=== PATIENT | female | born 1955 | race Hispanic/Latino ===

== ENCOUNTER 2019-02-02 14:33 | Outpatient (CLI) | payer OTHER ==
--- NOTE | 2019-02-02 15:59 | RAD ---
EXAM: RIGHT KNEE THREE VIEWS: History: Right knee pain. FINDINGS: Very markedly severe tricompartment arthrosis changes are noted with marked sclerosis and eburnation particularly involving the medial compartment with very extensive hypertrophic osteophytosis as well as probable multiple synovial osteochondromas and/or loose bodies. Suprapatellar joint effusion. No f racture or dislocation. IMPRESSION: Severe arthrosis and degenerative changes. Probable multiple synovial osteochondromas/intraarticular bodies. Suprapatellar joint effusion. No fracture or dislocation. POS: OFF
== END 2019-02-02 14:34 | disposition home or self-care (01) ==
LOC: BICRAD 14:33
PROVIDERS: ATTEND Family Medicine
DX: M25.561 Pain in right knee (principal); M17.11 Unilateral primary osteoarthritis, right knee; M25.461 Effusion, right knee

== ENCOUNTER 2019-02-21 02:29 | Inpatient (IN) | payer OTHER ==
[2019-02-21] MEDS ORDERED: Albuterol Sulfate 2.5 mg/3 ml Neb ONE (02:49)
[2019-02-21 02:58] LABS: #Eosinphils 0.1 thou/uL (0.0-0.7); #Lymphocytes 1.3 thou/uL (1.20-3.40); #Neutrophils 8.8 thou/uL (1.40-6.50); %Basophils 0.1 % (0.0-1.0); %Eosinophils 0.9 % (0.0-10.0); %Lymphocytes 11.7 % (21.0-51.0); %Monocytes 9.1 % (0.0-10.0); %Neutrophils 78.2 % (42.0-75.0); Hemoglobin 15.1 g/dL (12.0-16.0); Mean Corpuscular HGB CONC 34.2 g/dL (32.0-36.0); Mean Corpuscular Hemoglobin 30.7 pg (27.0-31.0); Mean Corpuscular Volume 89.6 fL (78.0-98.0); Mean Platelet Volume 6.5 fL (7.4-10.4); Platelet Count 324 thou/uL (130-400); Red Blood Cell (RBC) Count 4.91 mill/uL (4.20-5.40); White Blood Cell (WBC) Count 11.2 thou/uL (4.8-10.8)
[2019-02-21] MEDS ORDERED: Dexamethasone 10 MG/ML VIAL ONE (03:09)
[2019-02-21] MEDS ORDERED: Magnesium 2 GM/50 ML BAG (IN WATER) ONE (03:09)
[2019-02-21 03:20] LABS: ALT (SGPT) 20 U/L (8-55); AST (SGOT) 22 U/L (5-34); Alkaline Phosphatase 103 U/L (40-150); Anion Gap 13 mmol/L (10-20); BUN (Urea Nitrogen) 6 mg/dL (9.8-20.1); Bilirubin, Total 0.8 mg/dL (0.2-1.2); CK (CPK) 65 U/L (29-168); Calc. Creatinine Clearance 0 mL/min (70-130); Calcium 9.3 mg/dL (7.8-10.44); Carbon Dioxide 23 mmol/L (23-31); Chloride 93 mmol/L (98-107); Estimated GFR-MDRD 80; Globulin 3.6 g/dL (2.4-3.5); Glucose 236 mg/dL (80-115); Lipase 9 U/L (8-78); Potassium 3.7 mmol/L (3.5-5.1); Protein, Total 7.6 g/dL (6.0-8.3); Sodium 125 mmol/L (136-145)
[2019-02-21] MEDS ORDERED: Nitroglycerin 2% Ointment 1 INCH/1 GM Packet ONE ×2 (04:12→11:57)
[2019-02-21] MEDS ORDERED: Furosemide 20 MG/2 ML VIAL ONE (04:12)
[2019-02-21] MEDS ORDERED: Aspirin Chewable 81 MG TAB ONE (04:12)
[2019-02-21 04:31] LABS: Actual Bicarbonate (HCO3a) 23.8 mEq/L (22-28); Analyzer IN Cardio ER; Base Excess (BEa) -0.7 mEq/L (-2.0 to +3.0); CO2 Tension 38.9 mmHg (35.0-45.0); Calcium, Ionized 1.15 mmol/L (1.12-1.30); Carboxyhemoglobin (COHb) 7.1 gm% (0.0-3.0); Hemoglobin (Hb) 15.1 g/dL (12.0-16.0); Potassium - ABG Lab 3.23 mmol/L (3.70-5.30); pH, Arterial 7.41 (7.35-7.45)
[2019-02-21 04:50] LABS: ALV-art Gradient 93.615 (0-20); O2 Tension (PaO2) 57.4 mmHg (> 80.0); Puncture Site RRA
[2019-02-21 06:30] LABS: Troponin I Less than 0.010 ng/mL (< 0.028)
[2019-02-21] MEDS ORDERED: Ondansetron PF 4 MG/2 ML Vial IVP PRN (06:37)
[2019-02-21] MEDS ORDERED: Ondansetron ODT 4 MG TAB SL PRN (06:37)
--- NOTE | 2019-02-21 07:44 | CT ---
CTA THORAX UTILIZING IV CONTRAST WITH PE PROTOCOL AND 3D REFORMATTED IMAGING: Date: 02/21/19 INDICATION: Dyspnea, hypoxia. COMPARISON: None. FINDINGS: Respiratory motion artifact limits image detail of the exam. There are patchy areas of subsegmental v olume loss involving both lungs. No definite central or segmental pulmonary embolus is evident. No en larged lymphadenopathy is noted. No pleural effusion or pneumothorax is demonstrated. There are numer ous layered gallstones within the gallbladder. There is scattered degenerative change. IMPRESSION: 1. No central or segmental pulmonary embolus. 2. Nonspecific areas of subsegmental volume loss seen peripherally throughout both lungs can be rela sara to distal airway disease such as bronchiolitis. This can be infectious or inflammatory in etiolog y. 3. Cholelithiasis. POS: BH
[2019-02-21] MEDS ORDERED: Acetaminophen 325 MG TAB PO PRN (08:22)
[2019-02-21] MEDS ORDERED: Dextrose 5% in Water 1,000 ML IV PRN (08:24)
[2019-02-21] MEDS ORDERED: Dextrose 50% Abboject 50 ML SYRINGE SLOW IVP PRN (08:24)
[2019-02-21] MEDS ORDERED: Metoprolol Tartrate 50 MG TAB ONE (09:15)
[2019-02-21] MEDS ORDERED: Furosemide 40 MG/4 ML VIAL ONE ×2 (09:15→14:47)
[2019-02-21] MEDS ORDERED: Enoxaparin Sodium 40 MG/0.4 ML SYRINGE ONE (09:15)
[2019-02-21 09:22] LABS: Troponin I Less than 0.010 ng/mL (< 0.028)
[2019-02-21] MEDS: Enoxaparin Sodium 40 MG/0.4 ML SYRINGE SC SCH (09:25)
[2019-02-21] MEDS: Furosemide 40 MG/4 ML VIAL SLOW IVP SCH ×2 (09:28→15:00)
[2019-02-21] MEDS: Metoprolol Tartrate 50 MG TAB PO SCH ×2 (09:29→20:55)
[2019-02-21] MEDS: Lisinopril 20 MG TAB PO SCH (09:29)
--- NOTE | 2019-02-21 09:29 | RAD ---
PORTABLE CHEST: Date: 02/21/19 HISTORY: Dyspnea. COMPARISON: None. FINDINGS: Heart size is borderline to slightly enlarged considering portable technique. There are chronic-appea ring lung changes present. No confluent infiltrative process. Changes do not have the typical appeara nce of edema. IMPRESSION: Borderline heart size with increased interstitial lung markings. I would favor that these are probabl y chronic in nature, but could indicate some acute element. A follow-up chest film would be suggested to exclude edema or an atypical infectious process. POS: C
[2019-02-21] MEDS: Nicotine 14 MG PATCH TD SCH (09:33)
--- NOTE | 2019-02-21 09:57 | HP ---
CHIEF COMPLAINT: Shortness of breath. HISTORY OF PRESENT ILLNESS: This patient is a 64-year-old female with a history of significant mental health disease, last admitted here in 2013 with hypertensive urgency and significant mental health issues, at which time, it appear she was discharged to a mental health facility. The patient presented today via EMS with a complaint of 2 days of shortness of breath. The patient is Mauritian-speaking only. They were not able to get significant more information. At that time, apparently, they put her on 2 L nasal cannula, which did help her breathing. The patient now tells me through the interpreter and translator that she has actually been short of breath for 2 weeks. She has had a minimal associated cough and no significant sputum production. She denies any chest pains or fevers or chills. REVIEW OF SYSTEMS: All other systems were reviewed. All pertinent positives and negatives noted in the history of present illness with the exception of complaining of right knee pain, which has apparently been chronic. PAST MEDICAL HISTORY: Notable for hypertension, diabetes, hyperlipidemia, and the mental health issues above believed to be likely schizophrenia. She also apparently has hypothyroidism based on her medications. FAMILY HISTORY: The patient simply reports that both of her parents are . She is not able to give more history than that. PAST SURGICAL HISTORY: None. SOCIAL HISTORY: The patient smokes a pack of cigarettes per day. She denies alcohol or drugs. She lives in a little house by herself. She states that she does have some family around. She is full code and her surrogate decision maker would be her son, Amy. ALLERGIES: NONE. CURRENT MEDICATIONS: 1. Lisinopril 20 mg daily. 2. Metoprolol 50 mg p.o. b.i.d. 3. Pravastatin 20 mg daily. 4. Divalproex ER 500 mg b.i.d. 5. Levothyroxine 25 mcg daily. 6. Metformin ER 500 mg daily. 7. ProAir HFA 2 puffs q.6 hours p.r.n. 8. Fluphenazine depot injection. Of note, this medication list was obtained from the interface with the pharmacy and represent medications that have been filled in the past 60 days. PHYSICAL EXAMINATION: VITAL SIGNS: Initial vital signs; blood pressure 184/101, pulse 72, respirations 20, temperature is 99.1, O2 saturation was 94% on 2 L nasal cannula. Most recent vitals; blood pressure 150/80, pulse 69, respirations 19, and O2 saturations 99% on room air. GENERAL APPEARANCE: Age-appropriate female. She is awake and alert, cooperative and pleasant. She is Mauritian-speaking only and tends to be difficult to understand even for the pedigree researcher. She has a general odor about her. HEENT: PERRL. She has a couple of teeth, which are carious and black. NECK: Supple and symmetric. HEART: Regular rate and rhythm without murmurs, gallops, or rubs. LUNGS: Diminished. There are no significant wheezes or rales. ABDOMEN: Soft, nontender, and nondistended. Positive bowel sounds. No masses. No organomegaly. EXTREMITIES: No cyanosis, clubbing, or edema. She does have severe osteoarthropathy of the right knee. She has palpable peripheral pulses. No edema. PSYCH: The patient appears to be appropriate with her affect and behavior at the moment. LABORATORY DATA: White count 11.2, hemoglobin 15.1, and platelets 324. ABG; pH of 7.41, pCO2 is 38.9, pO2 was 57.4. Sodium is 125, potassium 3.7, chloride 93, CO2 is 23, BUN 6, creatinine 0.74, and glucose 263. AST is 22, ALT is 20, and alkaline phosphatase 103. BNP 1298. IMAGING DATA: CT of the chest reveals no central or segmental pulmonary embolus. There are nonspecific areas of subsegmental volume loss seen peripherally throughout the lungs, which could presumably be related to distal airway disease such as bronchiolitis, infectious or inflammatory etiologies. She also has cholelithiasis. EKGs, normal sinus rhythm at 82 beats per minute. IMPRESSION AND PLAN: 1. Acute hypoxic respiratory failure based on hypoxia on the ABG and the patient has complaints of dyspnea, etiology is likely due to chronic lung disease as seen on the CT scan. Chest x-ray has not been read but appears to show chronic changes as well without specific infiltrate. 2. Chronic obstructive pulmonary disease. The patient is a pack-a-day smoker for a number of years. Her symptoms are consistent with chronic obstructive pulmonary disease exacerbation and potentially some heart failure. We will keep her on supplemental oxygen, give nebulizer treatments and steroids. She does not respond quickly, may need to consider consultation with Pulmonology. Otherwise, it can be accomplished as an outpatient. 3. Congestive heart failure based on elevated BNP and this is higher than the patient's previous levels back in 2014, which were high of 331. The patient does not appear to have had a workup for congestive heart failure. We will obtain an echocardiogram. The patient did receive nitroglycerin topical and Lasix 40 mg in the emergency department as well as aspirin. 4. Hypertension. The patient's blood pressure was significantly elevated on presentation. She received some IV hydralazine and the nitro topical and her blood pressure is better now. We will resume her usual home medications and continue to monitor. 5. Hyponatremia. This is new for the patient as well. She has received diuresis because of the evidence of congestive heart failure. We will not hydrate. We will continue to monitor after workup for the heart failure in the diuresis. 6. Diabetes mellitus. We will continue the metformin and check A1c in the morning. Accu-Cheks, sliding scale, and diabetic diet. 7. Mild leukocytosis. The patient received a dose of antibiotics in the emergency department with Levaquin. There is otherwise not a specific evidence for infection at the moment. We will not continue with the antibiotics. 8. We will continue with telemetry and serial troponins in light of the heart failure decompensation, although the patient has not had specific chest pain or shortness of breath could be an anginal equivalent. 9. Hypothyroidism. Continue with her usual home medications. 10. Schizophrenia versus bipolar disorder. It is unclear exactly what the patient's psychiatric history is. She says she is "crazy." We will continue with the divalproex, presumably she is going to need the fluphenazine while she is here as it is the depot injection. Job ID: [id number]
[2019-02-21] MEDS ORDERED: ISOVUE-370 76%-LOCM 1 ML ONE (11:29)
[2019-02-21] MEDS ORDERED: methylPREDNISolone Sod Succ 40 MG VIAL ONE ×2 (11:57→12:11)
[2019-02-21] MEDS ORDERED: Nitroglycerin 2% Ointment 1 INCH/1 GM Packet TOP SCH (12:00)
[2019-02-21] MEDS: methylPREDNISolone Sod Succ 40 MG VIAL IVP SCH ×3 (12:50→23:48)
[2019-02-21] MEDS: Pravastatin Sodium 20 MG TAB PO SCH (20:55)
[2019-02-22 05:17] LABS: #Basophils 0.1 thou/uL (0.0-0.2); #Lymphocytes 0.6 thou/uL (1.20-3.40); #Monocytes 0.3 thou/uL (0.11-0.59); #Neutrophils 7.9 thou/uL (1.40-6.50); %Basophils 0.9 % (0.0-1.0); %Eosinophils 0.1 % (0.0-10.0); %Lymphocytes 6.6 % (21.0-51.0); %Monocytes 2.8 % (0.0-10.0); %Neutrophils 89.5 % (42.0-75.0); Hemoglobin 13.4 g/dL (12.0-16.0); Mean Corpuscular HGB CONC 32.8 g/dL (32.0-36.0); Mean Corpuscular Hemoglobin 29.6 pg (27.0-31.0); Mean Corpuscular Volume 90.4 fL (78.0-98.0); Mean Platelet Volume 6.7 fL (7.4-10.4); Platelet Count 312 thou/uL (130-400); RBC Distribution Width 13.1 % (11.5-14.5); Red Blood Cell (RBC) Count 4.51 mill/uL (4.20-5.40); White Blood Cell (WBC) Count 8.9 thou/uL (4.8-10.8)
[2019-02-22 05:48] LABS: Anion Gap 13 mmol/L (10-20); BUN (Urea Nitrogen) 19 mg/dL (9.8-20.1); Calc. Creatinine Clearance 83 mL/min (70-130); Calcium 9.4 mg/dL (7.8-10.44); Carbon Dioxide 26 mmol/L (23-31); Chloride 96 mmol/L (98-107); Estimated GFR-MDRD 78; Glucose 227 mg/dL (80-115); Potassium 3.4 mmol/L (3.5-5.1); Sodium 132 mmol/L (136-145)
[2019-02-22] MEDS: Levothyroxine Sodium 25 MCG TAB PO SCH (06:16)
[2019-02-22] MEDS: methylPREDNISolone Sod Succ 40 MG VIAL IVP SCH ×4 (06:19→23:59)
[2019-02-22] MEDS ORDERED: metFORMIN XR 500 MG TAB PO SCH (08:00)
[2019-02-22] MEDS ORDERED: Furosemide 40 MG/4 ML VIAL SLOW IVP SCH (09:15)
--- NOTE | 2019-02-22 10:40 | PDOC.PN ---
- Subjective Encounter Start Date: 02/22/19 Encounter Start Time: 10:38 Subjective: feels better now. irish interpretation used -: breathing better. no CP - Objective Resuscitation Status - Order Detail: 02/21/19 08:22 Resuscitation Status Routine Resuscitation Status: FULL: Full Resuscitation MAR Reviewed: Yes Vital Signs & Weight: Vital Signs (12 hours) Temp Pulse Resp BP Pulse Ox 02/22/19 08:12 95 02/22/19 08:10 98.1 F 76 16 155/72 H 89 L 02/22/19 06:16 74 18 96 02/22/19 03:35 98.1 F 69 17 157/72 H 97 02/21/19 23:07 63 18 Weight Weight 148 lb 11.52 oz Result Diagrams: 02/22/19 04:58 02/22/19 04:58 Additional Labs: Accuchecks 02/22/19 02/21/19 05:32 22:19 POC Glucose 236 H 283 H Laboratory Tests 02/24/14 02/21/19 06:56 02:45 B-Natriuretic Peptide 330.7 H 1298.3 H Phys Exam - Physical Examination Constitutional: NAD HEENT: PERRLA, moist MMs, sclera anicteric, oral pharynx no lesions Neck: no nodes, no JVD, supple, full ROM Respiratory: no wheezing, no rales, no rhonchi, clear to auscultation bilateral Cardiovascular: RRR, no significant murmur, no rub Gastrointestinal: soft, non-tender, no distention, positive bowel sounds Musculoskeletal: no edema, pulses present Neurological: non-focal, normal sensation, moves all 4 limbs Psychiatric: normal affect, A&O x 3 Skin: no rash Dx/Plan (1) Dyspnea Code(s): R06.00 - DYSPNEA, UNSPECIFIED Status: Acute Comment: Likely due to Acute COPD. cont nebs, steroids,O2 prn.cardiac workup underway (2) COPD exacerbation Code(s): J44.1 - CHRONIC OBSTRUCTIVE PULMONARY DISEASE W (ACUTE) EXACERBATION Status: Acute Comment: improving. cont nebs, steroids, O2 prn.IS (3) Elevated brain natriuretic peptide (BNP) level Code(s): R79.89 - OTHER SPECIFIED ABNORMAL FINDINGS OF BLOOD CHEMISTRY Status : Acute Comment: ECHO pending. cont lasix (4) Hypokalemia Code(s): E87.6 - HYPOKALEMIA Status: Acute Comment: replace and recheck (5) DM2 (diabetes mellitus, type 2) Status: Chronic Qualifiers: Diabetes mellitus correction insulin use: without correction use Comment: on ISS w Accuchecks achs (6) HTN (hypertension) Code(s): I10 - ESSENTIAL (PRIMARY) HYPERTENSION Status: Chronic Comment: on Lopressor and lisinopril.monnitor.add prn meds (7) HLD (hyperlipidemia) Code(s): E78.5 - HYPERLIPIDEMIA, UNSPECIFIED Status: Chronic - Plan respiratory therapy, incentive spirometry, DVT proph w/SCDs Clinically better.cont nebs,IV steroids -: cont to diurese and check ECHO results. -: HD stable -: ISS. reconcile home meds.cont prn antihypertensives * . Review of Systems - Review of Systems Constitutional: negative: fever, chills, sweats, weakness, malaise, other Respiratory: SOB with Excertion. negative: Cough, Dry, Shortness of Breath, Hemoptysis, Pleuritic Pain, Sputum, Wheezing Cardiovascular: negative: chest pain, palpitations, orthopnea, paroxysmal nocturnal dyspnea, edema, light headedness, other Gastrointestinal: negative: Nausea, Vomiting, Abdominal Pain, Diarrhea, Constipation, Melena, Hematochezia, Other Genitourinary: negative: Dysuria, Frequency, Incontinence, Hematuria, Retention , Other Musculoskeletal: negative: Neck Pain, Shoulder Pain, Arm Pain, Back Pain, Hand Pain, Leg Pain, Foot Pain, Other Neurological: negative: Weakness, Numbness, Incoordination, Change in Speech, Confusion, Seizures, Other - Medications/Allergies Allergies/Adverse Reactions: Allergies Allergy/AdvReac Type Severity Reaction Status Date / Time No Known Allergies Allergy Verified 02/21/19 18:57 Medications: Current Medications Acetaminophen (Tylenol) 650 mg PO Q4H PRN PRN Reason: Headache/Fever/Mild Pain (1-3) Albuterol/Ipratropium (Duoneb) 3 ml NEB [id number] [facility] Last Admin: 02/22/19 06:16 Dose: 3 ml Albuterol/Ipratropium (Duoneb) 3 ml NEB [id number] PRN PRN Reason: SOB &/or Wheezing Dextrose/Water (Dextrose 50%) 25 gm SLOW IVP PRN PRN PRN Reason: Hypoglycemia Divalproex Sodium (Depakote Er) 500 mg PO BID [facility] Last Admin: 02/21/19 20:55 Dose: 500 mg Enoxaparin Sodium (Lovenox) 40 mg SC 0900 [facility] Last Admin: 02/21/19 09:25 Dose: 40 mg Furosemide (Lasix) 40 mg SLOW IVP DAILY [facility] Furosemide (Lasix) 40 mg SLOW IVP NOW [facility] Stop: 02/22/19 12:00 Glucagon (Glucagon) 1 mg IM PRN PRN PRN Reason: Hypoglycemia Dextrose/Water (D5w) 1,000 mls @ 0 mls/hr IV .Q0M PRN PRN Reason: Hypoglycemia Insulin Human Lispro (Humalog) 0 units SC .MILD SLIDING SCALE PRN PRN Reason: Mild Correctional Scale Levothyroxine Sodium (Synthroid) 25 mcg PO 0600 [facility] Last Admin: 02/22/19 06:16 Dose: 25 mcg Lisinopril (Zestril) 20 mg PO DAILY [facility] Last Admin: 02/21/19 09:29 Dose: 20 mg Methylprednisolone Sodium Succinate (Solu-Medrol) 40 mg IVP Q6HR [facility] Last Admin: 02/22/19 06:19 Dose: 40 mg Metoprolol Tartrate (Lopressor) 50 mg PO BID [facility] Last Admin: 02/21/19 20:55 Dose: 50 mg Nicotine (Nicoderm Patch) 14 mg TD Q24HR [facility] Last Admin: 02/21/19 09:33 Dose: 14 mg Pravastatin Sodium (Pravachol) 20 mg PO HS [facility] Last Admin: 02/21/19 20:55 Dose: 20 mg
[2019-02-22] MEDS: Lisinopril 20 MG TAB PO SCH (10:42)
[2019-02-22] MEDS: Enoxaparin Sodium 40 MG/0.4 ML SYRINGE SC SCH (10:42)
[2019-02-22] MEDS: Metoprolol Tartrate 50 MG TAB PO SCH ×2 (10:43→21:10)
[2019-02-22] MEDS ORDERED: hydrALAZINE 20 MG/ML VIAL SLOW IVP PRN (10:44)
[2019-02-22] MEDS: Nicotine 14 MG PATCH TD SCH (10:44)
[2019-02-22] MEDS ORDERED: Potassium Chloride 20 MEQ TAB PO SCH (10:45)
[2019-02-22] MEDS: cloNIDine 0.1 MG TAB PO PRN (17:33)
[2019-02-22] MEDS: HumaLOG 300 UNITS/3 ML VIAL SC PRN ×2 (17:37→22:59)
[2019-02-22] MEDS: Pravastatin Sodium 20 MG TAB PO SCH (21:10)
[2019-02-23] MEDS: methylPREDNISolone Sod Succ 40 MG VIAL IVP SCH ×3 (05:13→19:19)
[2019-02-23] MEDS: Levothyroxine Sodium 25 MCG TAB PO SCH (05:13)
--- NOTE | 2019-02-23 07:26 | PDOC.PN ---
- Subjective Encounter Start Date: 02/23/19 Encounter Start Time: 10:00 Subjective: No more SOB. Still on oxygen. Seen by Dr. Bragg -: this AM. Refused cardiac catheterization. Medical management and try -: lifevest. No chest pain. No other complaints. - Objective Resuscitation Status - Order Detail: 02/21/19 08:22 Resuscitation Status Routine Resuscitation Status: FULL: Full Resuscitation MAR Reviewed: Yes Vital Signs & Weight: Vital Signs (12 hours) Temp Pulse Resp BP Pulse Ox 02/23/19 03:29 97.6 F 64 18 143/69 H 98 02/22/19 23:32 60 16 02/22/19 23:25 58 L 131/81 02/22/19 19:39 97.7 F 63 18 139/62 98 Weight Weight 148 lb 11.52 oz I&O: 02/22/19 02/23/19 02/24/19 06:59 06:59 06:59 Intake Total 960 Output Total 250 Balance 710 Result Diagrams: 02/22/19 04:58 02/23/19 08:04 Additional Labs: Accuchecks 02/23/19 02/22/19 02/22/19 05:30 20:28 16:55 POC Glucose 209 H 259 H 184 H 02/22/19 11:00 POC Glucose 202 H EKG Reviewed by me: Yes (Inferior Q-waves concerning for previous inferior MS) Phys Exam - Physical Examination Constitutional: NAD HEENT: moist MMs Respiratory: no wheezing, no rales, no rhonchi Cardiovascular: RRR Gastrointestinal: soft, positive bowel sounds Neurological: non-focal, moves all 4 limbs Psychiatric: normal affect, A&O x 3 Dx/Plan (1) Acute respiratory failure with hypoxia Code(s): J96.01 - ACUTE RESPIRATORY FAILURE WITH HYPOXIA Status: Acute (2) COPD exacerbation Code(s): J44.1 - CHRONIC OBSTRUCTIVE PULMONARY DISEASE W (ACUTE) EXACERBATION Status: Acute Comment: improving. cont nebs, steroids, O2 prn.IS (3) Acute on chronic systolic and diastolic heart failure, NYHA class 3 Code(s): I50.43 - ACUTE ON CHRONIC COMBINED SYSTOLIC AND DIASTOLIC HRT FAIL Status: Acute Comment: EF 20-25% with diastolic dysfunction, appreciate Dr. Bragg imput, on IV Lasix, will increase to BID (4) Hypokalemia Code(s): E87.6 - HYPOKALEMIA Status: Acute Comment: replace and recheck (5) DM2 (diabetes mellitus, type 2) Status: Chronic Qualifiers: Diabetes mellitus information security manager insulin use: without alf use Comment: on ISS w Acctamannaecks achs (6) HLD (hyperlipidemia) Code(s): E78.5 - HYPERLIPIDEMIA, UNSPECIFIED Status: Chronic (7) HTN (hypertension) Code(s): I10 - ESSENTIAL (PRIMARY) HYPERTENSION Status: Chronic Comment: on Lopressor and lisinopril.monnitor.add prn meds - Plan cont current plan of care, out of bed/ambulate, DVT proph w/lovenox ECHO abnormal, consulted cardiology and increasing Lasix * . - Discharge Day Encounter end time: 10:10
[2019-02-23 08:37] LABS: Anion Gap 10 mmol/L (10-20); BUN (Urea Nitrogen) 21 mg/dL (9.8-20.1); Calc. Creatinine Clearance 83 mL/min (70-130); Calcium 9.2 mg/dL (7.8-10.44); Carbon Dioxide 31 mmol/L (23-31); Chloride 96 mmol/L (98-107); Estimated GFR-MDRD 78; Glucose 213 mg/dL (80-115); Potassium 4.4 mmol/L (3.5-5.1); Sodium 133 mmol/L (136-145)
[2019-02-23] MEDS ORDERED: Furosemide 40 MG/4 ML VIAL SLOW IVP SCH (09:00)
--- NOTE | 2019-02-23 09:21 | CON ---
DATE OF CONSULTATION: REASON FOR CONSULTATION: Congestive heart failure. HISTORY OF PRESENT ILLNESS: Ms. Cristobal is an unfortunate 64-year-old woman with a history of diabetes, hypertension, tobacco abuse, hyperlipidemia, in addition to schizophrenia who recently presented with increased shortness of breath. No fevers, chills, or other associated symptoms. No chest pain, pressure, or associated symptoms. She has increased weight. The history is noted in Welsh. PAST MEDICAL HISTORY: As above and in addition, hypothyroidism. SOCIAL HISTORY: Positive tobacco use. ALLERGIES: NONE. HOME MEDICATIONS: Include lisinopril, metoprolol, pravastatin, levothyroxine, metformin, ProAir, and Fluphenazine. REVIEW OF SYSTEMS: A 10-point review of systems is reviewed as above, otherwise negative. PHYSICAL EXAMINATION: VITAL SIGNS: Blood pressure 159/72, pulse 89, temperature 98.2. GENERAL: Patient is a pleasant 64-year-old who is in no acute distress. The patient appears their stated age. NEUROLOGIC: The patient is alert and oriented x3 with no focal neurologic deficits. HEENT: Sclerae without icterus. Mouth has moist mucous membranes with normal pallor. NECK: No JVD. Carotid upstroke brisk. No bruits bilaterally. LUNGS: Clear to auscultation with unlabored respirations. BACK: No scoliosis or kyphosis. CARDIAC: Regular rate and rhythm with normal S1 and S2. No S3 or S4 noted. No significant rubs, murmurs, thrills, or gallops noted throughout the precordium. PMI is not displaced. There is no parasternal heave. ABDOMEN: Soft, nontender, nondistended. No peritoneal signs present. No hepatosplenomegaly. No abnormal striae. EXTREMITIES: 2+ femoral and 2+ dorsalis pedis pulses. No cyanosis, clubbing, or edema. SKIN: No gross abnormalities. PERTINENT LABORATORY DATA: Hemoglobin 13.4, creatinine 0.75. EKG shows normal sinus rhythm with Q-waves noted inferiorly suggesting inferior NC. Recent echo shows LVEF of 20-25%. IMPRESSION: 1. New onset cardiomyopathy. 2. Risk factors for underlying coronary artery disease. 3. Schizophrenia. RECOMMENDATIONS: Certainly very complex and difficult situation for Ms. Cristobal. I am unsure how fit Ms. Cristobal is for an aggressive cardiac approach. I discussed proceeding with coronary angiography to assess her anatomy. I am unsure on her compliance with medications. I discussed the procedure in full detail with Ms. Cristobal. Risks included, but not limited to . All questions were answered. At this point, she does not want to proceed with a more aggressive approach. She does not want to proceed with angiography. She would like to proceed with medical therapy. I also do not feel it is prudent to proceed with a noninvasive stress study given that this would not change the recommendations. We will make sure she is on a beta keeley, aspirin and statin therapy and aggressive blood pressure and diabetes management. I also counseled her on cessation of tobacco products. I also discussed LifeVest with the Ms. Cristobal. We will place the order. I am unsure she can be compliant. Job ID: [id number]
[2019-02-23] MEDS: Lisinopril 20 MG TAB PO SCH (09:23)
[2019-02-23] MEDS: Metoprolol Tartrate 50 MG TAB PO SCH ×2 (09:23→20:58)
[2019-02-23] MEDS: Potassium Chloride 20 MEQ TAB PO SCH (09:23)
[2019-02-23] MEDS: Enoxaparin Sodium 40 MG/0.4 ML SYRINGE SC SCH (09:24)
[2019-02-23] MEDS: Nicotine 14 MG PATCH TD SCH (09:25)
[2019-02-23] MEDS: HumaLOG 300 UNITS/3 ML VIAL SC PRN ×2 (11:25→21:05)
[2019-02-23] MEDS: cloNIDine 0.1 MG TAB PO PRN (12:42)
[2019-02-23] MEDS: Furosemide 40 MG/4 ML VIAL SLOW IVP SCH (14:52)
[2019-02-23] MEDS: Pravastatin Sodium 20 MG TAB PO SCH (20:58)
[2019-02-24] MEDS: methylPREDNISolone Sod Succ 40 MG VIAL IVP SCH ×4 (00:04→19:56)
[2019-02-24] MEDS: Furosemide 40 MG/4 ML VIAL SLOW IVP SCH ×2 (05:49→13:08)
[2019-02-24] MEDS: Levothyroxine Sodium 25 MCG TAB PO SCH (05:50)
[2019-02-24 06:18] LABS: Hemoglobin 13.9 g/dL (12.0-16.0); Mean Corpuscular HGB CONC 33.3 g/dL (32.0-36.0); Mean Corpuscular Hemoglobin 30.2 pg (27.0-31.0); Mean Corpuscular Volume 90.6 fL (78.0-98.0); Platelet Count 309 thou/uL (130-400); RBC Distribution Width 13.1 % (11.5-14.5); White Blood Cell (WBC) Count 5.9 thou/uL (4.8-10.8)
[2019-02-24 06:19] LABS: #Lymphocytes 0.7 thou/uL (1.20-3.40); #Monocytes 0.2 thou/uL (0.11-0.59); %Basophils 0.2 % (0.0-1.0); %Eosinophils 0.1 % (0.0-10.0); %Lymphocytes 11.7 % (21.0-51.0); %Monocytes 3.5 % (0.0-10.0); %Neutrophils 84.5 % (42.0-75.0)
[2019-02-24 06:40] LABS: Anion Gap 10 mmol/L (10-20); BUN (Urea Nitrogen) 20 mg/dL (9.8-20.1); Calc. Creatinine Clearance 86 mL/min (70-130); Calcium 9.2 mg/dL (7.8-10.44); Carbon Dioxide 30 mmol/L (23-31); Chloride 95 mmol/L (98-107); Estimated GFR-MDRD 82; Glucose 230 mg/dL (80-115); Potassium 4.4 mmol/L (3.5-5.1); Sodium 131 mmol/L (136-145)
[2019-02-24] MEDS: HumaLOG 300 UNITS/3 ML VIAL SC PRN (09:31)
[2019-02-24] MEDS: Lisinopril 20 MG TAB PO SCH (09:32)
[2019-02-24] MEDS: Enoxaparin Sodium 40 MG/0.4 ML SYRINGE SC SCH (09:32)
[2019-02-24] MEDS: Metoprolol Tartrate 50 MG TAB PO SCH (09:32)
[2019-02-24] MEDS: Potassium Chloride 20 MEQ TAB PO SCH (09:32)
--- NOTE | 2019-02-24 10:57 | PDOC.PN ---
- Subjective Encounter Start Date: 02/24/19 Encounter Start Time: 09:30 Patient seen and examined. No new complaints. No overnight events - Objective Resuscitation Status - Order Detail: 02/21/19 08:22 Resuscitation Status Routine Resuscitation Status: FULL: Full Resuscitation MAR Reviewed: Yes Vital Signs & Weight: Vital Signs (12 hours) Temp Pulse Resp BP BP Pulse Ox 02/24/19 09:32 159/71 H 02/24/19 08:18 98.2 F 63 20 152/78 H 97 02/24/19 06:50 90 14 02/24/19 04:11 98.1 F 60 20 146/73 H 94 L 02/24/19 00:09 97.3 F L 55 L 20 100 02/23/19 23:57 88 20 93 L Weight Weight 145 lb 7 oz I&O: 02/23/19 02/24/19 02/25/19 06:59 06:59 06:59 Intake Total 960 Output Total 250 Balance 710 Result Diagrams: 02/24/19 05:29 02/24/19 05:29 Additional Labs: Accuchecks 02/24/19 02/23/19 02/23/19 05:41 20:37 16:37 POC Glucose 226 H 264 H 181 H 02/23/19 10:59 POC Glucose 284 H Radiology Reviewed by me: Yes EKG Reviewed by me: Yes Phys Exam - Physical Examination Constitutional: NAD HEENT: PERRLA, moist MMs, sclera anicteric Neck: no JVD, supple Respiratory: no wheezing, no rhonchi few basal rales Cardiovascular: RRR, no significant murmur, no rub Gastrointestinal: soft, non-tender, no distention, positive bowel sounds Musculoskeletal: no edema, pulses present Neurological: non-focal, normal sensation, moves all 4 limbs Lymphatic: no nodes Psychiatric: normal affect, A&O x 3 Skin: no rash, normal turgor Dx/Plan (1) Acute on chronic systolic and diastolic heart failure, NYHA class 3 Code(s): I50.43 - ACUTE ON CHRONIC COMBINED SYSTOLIC AND DIASTOLIC HRT FAIL Status: Acute Comment: EF 20-25% with diastolic dysfunction, on IV Lasix, will (2) Acute respiratory failure with hypoxia Code(s): J96.01 - ACUTE RESPIRATORY FAILURE WITH HYPOXIA Status: Acute (3) COPD exacerbation Code(s): J44.1 - CHRONIC OBSTRUCTIVE PULMONARY DISEASE W (ACUTE) EXACERBATION Status: Acute Comment: improving. cont nebs, steroids, O2 prn.IS (4) Hypokalemia Code(s): E87.6 - HYPOKALEMIA Status: Resolved Comment: (5) DM2 (diabetes mellitus, type 2) Status: Chronic Qualifiers: Diabetes mellitus [facility] insulin use: without technician terminal and repeater use Comment: on ISS w Accuchecks achs (6) HLD (hyperlipidemia) Code(s): E78.5 - HYPERLIPIDEMIA, UNSPECIFIED Status: Chronic (7) HTN (hypertension) Code(s): I10 - ESSENTIAL (PRIMARY) HYPERTENSION Status: Chronic Comment: - Plan cont current plan of care * continue lasix * reduce solumedrol BID * medication reviewed as below * symptomatic treatment * ambulate * cardiac rehab * cardiology following. Review of Systems - Review of Systems ENT: negative: Ear Pain, Ear Discharge, Nose Pain, Nose Discharge, Nose Congestion, Mouth Pain, Mouth Swelling, Throat Pain, Throat Swelling, Other Respiratory: Shortness of Breath, SOB with Excertion. negative: Cough, Dry, Hemoptysis, Pleuritic Pain, Sputum, Wheezing Cardiovascular: negative: chest pain, palpitations, orthopnea, paroxysmal nocturnal dyspnea, edema, light headedness, other Gastrointestinal: negative: Nausea, Vomiting, Abdominal Pain, Diarrhea, Constipation, Melena, Hematochezia, Other Genitourinary: negative: Dysuria, Frequency, Incontinence, Hematuria, Retention , Other Musculoskeletal: negative: Neck Pain, Shoulder Pain, Arm Pain, Back Pain, Hand Pain, Leg Pain, Foot Pain, Other - Medications/Allergies Allergies/Adverse Reactions: Allergies Allergy/AdvReac Type Severity Reaction Status Date / Time No Known Allergies Allergy Verified 02/21/19 18:57 Medications: Current Medications Acetaminophen (Tylenol) 650 mg PO Q4H PRN PRN Reason: Headache/Fever/Mild Pain (1-3) Albuterol/Ipratropium (Duoneb) 3 ml NEB [id number] REMIGIO Last Admin: 02/24/19 06:50 Dose: 3 ml Albuterol/Ipratropium (Duoneb) 3 ml NEB [id number] PRN PRN Reason: SOB &/or Wheezing Clonidine (Catapres) 0.1 mg PO Q4H PRN PRN Reason: SBP>160 Last Admin: 02/23/19 12:42 Dose: 0.1 mg Dextrose/Water (Dextrose 50%) 25 gm SLOW IVP PRN PRN PRN Reason: Hypoglycemia Divalproex Sodium (Depakote Er) 500 mg PO BID [facility] Last Admin: 02/24/19 09:31 Dose: 500 mg Enoxaparin Sodium (Lovenox) 40 mg SC 0900 [facility] Last Admin: 02/24/19 09:32 Dose: 40 mg Furosemide (Lasix) 40 mg SLOW IVP 0600,1400 [facility] Last Admin: 02/24/19 05:49 Dose: 40 mg Glucagon (Glucagon) 1 mg IM PRN PRN PRN Reason: Hypoglycemia Hydralazine HCl (Apresoline) 10 mg SLOW IVP Q4H PRN PRN Reason: SBP>170 Dextrose/Water (D5w) 1,000 mls @ 0 mls/hr IV .Q0M PRN PRN Reason: Hypoglycemia Insulin Human Lispro (Humalog) 0 units SC .MILD SLIDING SCALE PRN PRN Reason: Mild Correctional Scale Last Admin: 02/24/19 09:31 Dose: 3 unit Insulin Human Lispro (Humalog) 0 units SC .BEDTIME SLIDING SC PRN PRN Reason: Bedtime Correctional Scale Last Admin: 02/23/19 21:05 Dose: 3 unit/kg Levothyroxine Sodium (Synthroid) 25 mcg PO 0600 [facility] Last Admin: 02/24/19 05:50 Dose: 25 mcg Lisinopril (Zestril) 20 mg PO DAILY [facility] Last Admin: 02/24/19 09:32 Dose: 20 mg Methylprednisolone Sodium Succinate (Solu-Medrol) 40 mg IVP Q12HR [facility] Last Admin: 02/24/19 10:56 Dose: 40 mg Metoprolol Tartrate (Lopressor) 50 mg PO BID [facility] Last Admin: 02/24/19 09:32 Dose: 50 mg Nicotine (Nicoderm Patch) 14 mg TD Q24HR [facility] Last Admin: 02/23/19 09:25 Dose: 14 mg Potassium Chloride (K-Dur) 40 meq PO QAM-WM [facility] Last Admin: 02/24/19 09:32 Dose: 40 meq Pravastatin Sodium (Pravachol) 20 mg PO HS [facility] Last Admin: 02/23/19 20:58 Dose: 20 mg Sodium Chloride (Flush - Normal Saline) 10 ml IVF Q12HR REMIGIO Last Admin: 02/24/19 09:33 Dose: 10 ml Sodium Chloride (Flush - Normal Saline) 10 ml IVF PRN PRN PRN Reason: Saline Flush
[2019-02-24] MEDS: Nicotine 14 MG PATCH TD SCH (13:08)
--- NOTE | 2019-02-24 17:51 | PDOC.CTH ---
Cardiology Progress Note - Subjective NO complaints. She would like to go home. - Objective Vital Signs Temp Pulse Resp BP BP Pulse Ox 02/24/19 12:30 70 16 02/24/19 12:00 97.9 F 61 20 146/64 H 97 02/24/19 09:32 159/71 H 02/24/19 08:18 98.2 F 63 20 152/78 H 97 02/24/19 08:00 97 02/24/19 06:50 90 14 Weight 145 lb 7 oz 02/23/19 02/24/19 02/25/19 06:59 06:59 06:59 Intake Total 960 Output Total 250 Balance 710 - Physical Examination General/Neuro: NAD Neck: no JVD present Lungs: CTA, unlabored respirations Heart: PMI normal, RRR Abdomen: NT/ND, soft Extremities: + femoral B - Telemetry Telemetry Rhythm: SR - Labs Result Diagrams: 02/24/19 05:29 02/24/19 05:29 Troponin/CKMB Troponin I Less than 0.010 ng/mL (< 0.028) 02/21/19 08:41 - Assessment/Plan Cardiomyopathy, unknown etyiology Schizophrenia Pt would like to proceed with medical management. Given situation, I agree. Lifevest placed On BB, ACEI and statin and ASA No other recommendations. Fu in 2-3 weeks
[2019-02-24] MEDS: Carvedilol 6.25 MG TAB PO SCH (19:15)
[2019-02-24] MEDS: Pravastatin Sodium 20 MG TAB PO SCH (19:56)
[2019-02-25] MEDS: Levothyroxine Sodium 25 MCG TAB PO SCH (04:35)
[2019-02-25] MEDS: Furosemide 40 MG/4 ML VIAL SLOW IVP SCH (04:35)
[2019-02-25 05:21] LABS: #Monocytes 0.6 thou/uL (0.11-0.59); %Basophils 0.4 % (0.0-1.0); %Lymphocytes 17.7 % (21.0-51.0); %Monocytes 10.5 % (0.0-10.0); %Neutrophils 71.4 % (42.0-75.0); Hemoglobin 14.9 g/dL (12.0-16.0); Mean Corpuscular HGB CONC 33.1 g/dL (32.0-36.0); Mean Corpuscular Hemoglobin 29.9 pg (27.0-31.0); Mean Corpuscular Volume 90.2 fL (78.0-98.0); Mean Platelet Volume 7.1 fL (7.4-10.4); Platelet Count 309 thou/uL (130-400); Red Blood Cell (RBC) Count 4.98 mill/uL (4.20-5.40); White Blood Cell (WBC) Count 5.6 thou/uL (4.8-10.8)
[2019-02-25 05:38] LABS: Anion Gap 13 mmol/L (10-20); BUN (Urea Nitrogen) 26 mg/dL (9.8-20.1); Calc. Creatinine Clearance 76 mL/min (70-130); Carbon Dioxide 29 mmol/L (23-31); Chloride 94 mmol/L (98-107); Estimated GFR-MDRD 73; Glucose 341 mg/dL (80-115); Magnesium 2.3 mg/dL (1.6-2.6); Potassium 4.1 mmol/L (3.5-5.1); Sodium 132 mmol/L (136-145); Uric Acid 5.3 mg/dL (2.6-6.0)
[2019-02-25] MEDS: HumaLOG 300 UNITS/3 ML VIAL SC PRN (06:13)
[2019-02-25] MEDS: Lisinopril 20 MG TAB PO SCH (10:18)
[2019-02-25] MEDS: Potassium Chloride 20 MEQ TAB PO SCH (10:18)
[2019-02-25] MEDS: Enoxaparin Sodium 40 MG/0.4 ML SYRINGE SC SCH (10:19)
[2019-02-25] MEDS: Carvedilol 6.25 MG TAB PO SCH (10:19)
[2019-02-25] MEDS: Nicotine 14 MG PATCH TD SCH (10:20)
[2019-02-25] MEDS: methylPREDNISolone Sod Succ 40 MG VIAL IVP SCH (10:20)
[2019-02-25 13:03] VITALS: BP 162/68; TEMP 97.8
--- NOTE | 2019-02-25 21:31 | DIS ---
DATE OF ADMISSION: 02/21/2019 DATE OF DISCHARGE: 02/25/2019 DISCHARGE DIAGNOSES: 1. Acute on chronic systolic and diastolic congestive heart failure, [place] Heart Association class III. 2. Ischemic cardiomyopathy with ejection fraction of 20% to 25%. 3. Acute hypoxic respiratory failure, resolving. 4. Chronic obstructive pulmonary disease exacerbation, improved. 5. Hypokalemia ,resolved. 6. Diabetes mellitus type 2, labile. 7. Hypertension, stable. 8. Bipolar disorder/schizophrenia. 9. Tobacco abuse. CONSULTATIONS: Dr. Bragg with Cardiology Service. PERTINENT LAB AND X-RAY FINDINGS: Sodium ranged between 125 to 133, potassium ranged between 3.4 to 4.4. Troponin I negative x3. BNP 1298, previously noted 331 on 02/24/2014. TSH 1.85. CBC showed a white blood cell count ranged between 5.[address] angiogram of the chest dated 02/21/2019, showed no evidence for pulmonary embolus. Subsegmental volume loss peripherally in bilateral lung hoffman. Portable chest x-ray dated on 02/21/2019, showed increased interstitial lung markings. 2D transthoracic echocardiogram dated 02/22/2019, showed ejection fraction 20% to 25%. Diastolic dysfunction noted. Moderate to severe mitral regurgitation. HOSPITAL COURSE: The patient was initially admitted after presenting with increased shortness of breath with hypoxemia noted. The patient underwent extensive evaluation with initial diagnosis of COPD exacerbation. The patient was also noted with elevated BNP of above previous values in the 330 range in 2013. The patient was placed on IV Lasix and transdermal nitroglycerin and monitored for clinical response. The patient diuresed appropriately with an approximate 5-pound weight loss from 148 to 143 pounds during the hospital stay. The patient symptomatically improved and underwent 2D transthoracic echocardiogram evaluation confirming depressed ejection fraction of 20% to 25%. Due to the patient's cardiomyopathy and depressed ejection fraction, the patient was recommended for LifeVest therapy. The patient receives a LifeVest with instructions on home use prior to discharge. The patient clinically stabilized with supportive management including pulmonary supportive care and titration of her diuretic therapy. I have examined the patient at time of discharge and discussed followup instructions. The patient verbalized understanding and agreement ready for discharge on 02/25/2019. DISCHARGE MEDICATIONS: 1. Depakote extended release 500 mg p.o. at bedtime. 2. Synthroid 25 mcg p.o. daily. 3. Lisinopril 20 mg p.o. daily. 4. Metformin 500 mg p.o. b.i.d. 5. Cogentin 2 mg p.o. at bedtime. 6. Lasix 40 mg p.o. daily. 7. Metoprolol tartrate 50 mg p.o. b.i.d. 8. Paxil 40 mg p.o. daily. 9. Potassium chloride 20 mEq p.o. daily. 10. Pravachol 20 mg p.o. at bedtime. 11. Prednisone 10 mg 2 tablets p.o. b.i.d. x3 days, followed by 2 tablets p.o. daily x2 days. FOLLOWUP: The patient may follow up with Dr. Pascale Merritt within 7 days of discharge. The patient may follow up with Dr. Maximiliano Bragg with [facility]. The patient may follow up with [facility] Mer[facility]. CONDITION ON DISCHARGE: Stable. ACTIVITY: Ad-kwabena. DIET: Heart healthy and ADA. CODE STATUS: Full. DISPOSITION: Home, 02/25/2019. TIME SPENT: Total time preparing and coordinating discharge, 32 minutes. Job ID: [id number]
== END 2019-02-25 17:09 | disposition home or self-care (01) | DRG 291 ==
LOC: ERS 02:29 → ERHOLD 04:56 → 2NO 17:10
PROVIDERS: ADMIT Hospitalist; ATTEND Hospitalist
DX: I11.0 Hypertensive heart disease with heart failure (principal); J96.01 Acute respiratory failure with hypoxia; J44.1 Chronic obstructive pulmonary disease with (acute) exacerbation; E87.1 Hypo-osmolality and hyponatremia; I50.43 Acute on chronic combined systolic (congestive) and diastolic (congestive) heart failure; I25.5 Ischemic cardiomyopathy; F20.9 Schizophrenia, unspecified; F31.9 Bipolar disorder, unspecified; D72.829 Elevated white blood cell count, unspecified; E11.9 Type 2 diabetes mellitus without complications; F17.210 Nicotine dependence, cigarettes, uncomplicated; E78.5 Hyperlipidemia, unspecified; E03.9 Hypothyroidism, unspecified; E87.6 Hypokalemia; Z79.84 Long term (current) use of oral hypoglycemic drugs; Z79.51 Long term (current) use of inhaled steroids; Z79.899 Other long term (current) drug therapy
CPT/HCPCS: 36415; 36416; 71045; 71275; 80048; 80053; 82550; 82805; 83690; 83735; 83880; 84443; 84484; 84550; 85025; 93005; 93306; 94640; J1100; J1650; J1940; J1956; J2920; J3475; J7611; J7620; Q9966

== ENCOUNTER 2022-06-14 11:33 | Inpatient (IN) | payer OTHER ==
[2022-06-14] MEDS ORDERED: Ondansetron PF 4 MG/2 ML Vial ONE (12:00)
[2022-06-14] MEDS ORDERED: Morphine 4 MG/ML VIAL ONE (12:00)
[2022-06-14 12:57] LABS: #Lymphocytes 1.4 thou/uL (1.20-3.40); #Neutrophils 6.9 thou/uL (1.40-6.50); %Basophils 0.1 % (0.0-1.0); %Eosinophils 0.4 % (0.0-10.0); %Lymphocytes 15.3 % (21.0-51.0); %Monocytes 10.4 % (0.0-10.0); %Neutrophils 73.8 % (42.0-75.0); Hemoglobin 11.9 g/dL (12.0-16.0); Mean Corpuscular HGB CONC 33.9 g/dL (32.0-36.0); Mean Corpuscular Hemoglobin 31.4 pg (27.0-31.0); Mean Corpuscular Volume 92.7 fL (78.0-98.0); Mean Platelet Volume 7.5 fL (7.4-10.4); Platelet Count 291 thou/uL (130-400); RBC Distribution Width 12.7 % (11.5-14.5); Red Blood Cell (RBC) Count 3.78 mill/uL (4.20-5.40); White Blood Cell (WBC) Count 9.4 thou/uL (4.8-10.8)
[2022-06-14 13:08] LABS: INR-International Normal Ratio 1.2; PTT 32.2 sec (22.9-36.1); Prothrombin Time 15.1 sec (12.0-14.7)
[2022-06-14] MEDS ORDERED: Morphine 2 MG/ML VIAL SLOW IVP PRN (13:42)
[2022-06-14] MEDS ORDERED: Dextrose 5% in Water 1,000 ML IV PRN (13:42)
[2022-06-14] MEDS ORDERED: Dextrose 50% Abboject 50 ML SYRINGE SLOW IVP PRN (13:42)
[2022-06-14] MEDS ORDERED: hydrALAZINE 20 MG/ML VIAL SLOW IVP PRN (13:43)
[2022-06-14] MEDS ORDERED: Promethazine HCl 25 MG/ML VIAL IM PRN (13:43)
[2022-06-14] MEDS ORDERED: Ondansetron PF 4 MG/2 ML Vial IVP PRN (13:43)
[2022-06-14 13:45] LABS: ALT (SGPT) 19 U/L (8-55); AST (SGOT) 32 U/L (5-34); Albumin 3.6 g/dL (3.4-4.8); Alkaline Phosphatase 68 U/L (40-110); Anion Gap 17 mmol/L (10-20); BUN (Urea Nitrogen) 41 mg/dL (9.8-20.1); Bilirubin, Total 1.1 mg/dL (0.2-1.2); CK (CPK) 702 U/L (29-168); Calc. Creatinine Clearance 0 mL/min (70-130); Carbon Dioxide 24 mmol/L (23-31); Chloride 97 mmol/L (98-107); Estimated GFR 46; Glucose 196 mg/dL (80-115); Protein, Total 6.6 g/dL (5.8-8.1); Sodium 135 mmol/L (136-145)
[2022-06-14] MEDS ORDERED: Sodium Chloride 0.9% 1,000 ML IV SCH (13:45)
[2022-06-14 13:47] LABS: CKMB 10.1 ng/mL (0-6.6)
[2022-06-14] MEDS ORDERED: traMADol HCl 50 MG TAB PO PRN (13:47)
[2022-06-14] MEDS ORDERED: Cyclobenzaprine 10 MG TAB PO PRN (13:47)
[2022-06-14 14:07] LABS: SARS-CoV-2 NAA Rapid Test Not Detected (NotDetected)
[2022-06-14] MEDS ORDERED: Potassium Phosphate 30 MMOL in Sodium Chloride 0.9% 250 ML 250 ML IVPB SCH (14:15)
[2022-06-14 14:47] LABS: Magnesium 2.1 mg/dL (1.6-2.6)
[2022-06-14] MEDS ORDERED: Magnesium 2 GM/50 ML BAG (IN WATER) ONE (14:59)
[2022-06-14] MEDS ORDERED: Potassium Chloride 20 MEQ in Premix Bag 1 BAG IVPB SCH (15:15)
[2022-06-14] MEDS ORDERED: CEFAZOLIN 2 GM in Sodium Chloride 0.9% 100 ML IVPB SCH (17:00)
[2022-06-14] MEDS: Acetaminophen 500 MG TAB PO SCH ×2 (18:41→21:24)
[2022-06-14] MEDS: traMADol HCl 50 MG TAB PO SCH ×2 (19:08→23:36)
[2022-06-14] MEDS: Sodium Chloride 0.9% 1,000 ML IV SCH ×2 (19:28→21:43)
[2022-06-14] MEDS ORDERED: Simvastatin 10 MG TAB PO SCH (21:00)
[2022-06-14] MEDS: Senokot S 8.6-50 MG TAB PO SCH (21:25)
[2022-06-14] MEDS: Famotidine/PF 20 mg/2ml Vial SLOW IVP SCH (21:26)
[2022-06-14 23:01] LABS: Bacteria/HPF 4+ HPF (None Seen); Bilirubin Negative (Negative); Blood, Urine Trace (Negative); Clarity Turbid (Clear); Glucose, Urine (Dipstick) Normal (Negative); Ketone, Urine Negative (Negative); Leukocyte 25 Leu/uL (Negative); Nitrite Negative (Negative); Protein, Urine (Dipstick) 20 mg/dL (Neg-Trace); RBC/HPF 0-3 HPF (0-3); Squamous Epithelial 0-3 HPF (0-3); Urobilinogen Normal mg/dL (Less than 2); pH, Urine 5.5 (5.0-9.0)
[2022-06-14 23:04] LABS: Urine Culture Reflex Yes Yes
[2022-06-15] MEDS: Acetaminophen 500 MG TAB PO SCH ×4 (02:16→21:57)
[2022-06-15] MEDS: Sodium Chloride 0.9% 1,000 ML IV SCH ×3 (02:17→22:37)
[2022-06-15 04:29] LABS: #Eosinphils 0.2 thou/uL (0.0-0.7); #Lymphocytes 1.7 thou/uL (1.20-3.40); #Monocytes 0.9 thou/uL (0.11-0.59); #Neutrophils 4.4 thou/uL (1.40-6.50); %Basophils 0.1 % (0.0-1.0); %Eosinophils 2.3 % (0.0-10.0); %Monocytes 12.7 % (0.0-10.0); %Neutrophils 61.8 % (42.0-75.0); Hemoglobin 9.5 g/dL (12.0-16.0); Mean Corpuscular HGB CONC 33.9 g/dL (32.0-36.0); Mean Corpuscular Hemoglobin 31.9 pg (27.0-31.0); Mean Platelet Volume 7.1 fL (7.4-10.4); Platelet Count 256 thou/uL (130-400); RBC Distribution Width 12.9 % (11.5-14.5); Red Blood Cell (RBC) Count 2.98 mill/uL (4.20-5.40); White Blood Cell (WBC) Count 7.1 thou/uL (4.8-10.8)
[2022-06-15 04:50] LABS: Phosphorus 4.1 mg/dL (2.3-4.7)
[2022-06-15 04:53] LABS: Anion Gap 12 mmol/L (10-20); BUN (Urea Nitrogen) 29 mg/dL (9.8-20.1); Calc. Creatinine Clearance 65 mL/min (70-130); Calcium 7.9 mg/dL (7.8-10.44); Carbon Dioxide 23 mmol/L (23-31); Chloride 106 mmol/L (98-107); Estimated GFR 82; Glucose 98 mg/dL (80-115); Magnesium 2.3 mg/dL (1.6-2.6); Potassium 3.3 mmol/L (3.5-5.1); Sodium 138 mmol/L (136-145)
[2022-06-15 05:13] LABS: CKMB 3.7 ng/mL (0-6.6)
[2022-06-15] MEDS: Levothyroxine Sodium 25 MCG TAB PO SCH (06:14)
[2022-06-15] MEDS: traMADol HCl 50 MG TAB PO SCH ×4 (06:14→22:43)
[2022-06-15] MEDS ORDERED: Potassium Chloride 40 MEQ in Premix Bag 1 BAG IVPB SCH (09:00)
[2022-06-15] MEDS ORDERED: CEFAZOLIN 2 GM VIAL ONE (10:41)
[2022-06-15] MEDS ORDERED: Sodium Chloride 0.9% 100 ML ONE (10:41)
[2022-06-15] MEDS ORDERED: Ondansetron PF 4 MG/2 ML Vial ONE ×2 (10:53→11:17)
[2022-06-15] MEDS ORDERED: PROPOFOL 200 MG/20 ML VIAL ONE (10:53)
[2022-06-15] MEDS ORDERED: PHENYLEPHRINE-NS 100 MCG/ML 10 ML SYRINGE ONE (10:57)
[2022-06-15] MEDS ORDERED: fentaNYL Citrate/PF 100 MCG/2 ML SYRINGE ONE (11:11)
[2022-06-15] MEDS ORDERED: Ondansetron HCl/PF 4 MG/2 ML Vial IVP PRN (11:50)
[2022-06-15] MEDS ORDERED: Promethazine HCl 25 MG/ML VIAL IVPB PRN (11:50)
[2022-06-15] MEDS ORDERED: Promethazine HCl 25 MG/ML VIAL IM PRN (11:50)
[2022-06-15] MEDS: Polyethylene Glycol 3350 17 GM Packet PO SCH (13:45)
[2022-06-15] MEDS: PARoxetine 20 MG TAB PO SCH (13:45)
[2022-06-15] MEDS: Senokot S 8.6-50 MG TAB PO SCH ×2 (14:18→22:04)
[2022-06-15] MEDS ORDERED: CEFAZOLIN 2 GM in Sodium Chloride 0.9% 100 ML IVPB SCH (18:00)
[2022-06-15] MEDS ORDERED: CEFAZOLIN 2 GM VIAL IM SCH (20:15)
[2022-06-15] MEDS: CEFAZOLIN 2 GM in Sodium Chloride 0.9% 100 ML IVPB SCH (22:37)
[2022-06-15] MEDS: Famotidine/PF 20 mg/2ml Vial SLOW IVP SCH (22:46)
[2022-06-16] MEDS: Acetaminophen 500 MG TAB PO SCH ×4 (02:17→21:18)
[2022-06-16] MEDS: CEFAZOLIN 2 GM in Sodium Chloride 0.9% 100 ML IVPB SCH (05:29)
[2022-06-16] MEDS: Levothyroxine Sodium 25 MCG TAB PO SCH (05:30)
[2022-06-16] MEDS: traMADol HCl 50 MG TAB PO SCH ×3 (05:30→19:32)
[2022-06-16 06:21] LABS: #Eosinphils 0.2 thou/uL (0.0-0.7); #Lymphocytes 1.3 thou/uL (1.20-3.40); #Monocytes 0.9 thou/uL (0.11-0.59); #Neutrophils 5.2 thou/uL (1.40-6.50); %Basophils 0.1 % (0.0-1.0); %Eosinophils 2.2 % (0.0-10.0); %Lymphocytes 17.1 % (21.0-51.0); %Monocytes 11.4 % (0.0-10.0); %Neutrophils 69.2 % (42.0-75.0); Mean Corpuscular HGB CONC 33.3 g/dL (32.0-36.0); Mean Corpuscular Hemoglobin 31.6 pg (27.0-31.0); Mean Corpuscular Volume 94.9 fL (78.0-98.0); Mean Platelet Volume 6.8 fL (7.4-10.4); Platelet Count 301 thou/uL (130-400); Red Blood Cell (RBC) Count 3.15 mill/uL (4.20-5.40); White Blood Cell (WBC) Count 7.5 thou/uL (4.8-10.8)
[2022-06-16 06:39] LABS: Anion Gap 12 mmol/L (10-20); BUN (Urea Nitrogen) 10 mg/dL (9.8-20.1); Calc. Creatinine Clearance 81 mL/min (70-130); Calcium 8.3 mg/dL (7.8-10.44); Carbon Dioxide 28 mmol/L (23-31); Chloride 99 mmol/L (98-107); Estimated GFR 98; Glucose 111 mg/dL (80-115); Magnesium 1.7 mg/dL (1.6-2.6); Phosphorus 2.5 mg/dL (2.3-4.7); Potassium 2.9 mmol/L (3.5-5.1); Sodium 136 mmol/L (136-145)
[2022-06-16] MEDS: PARoxetine 20 MG TAB PO SCH (08:30)
[2022-06-16] MEDS: Nitrofurantoin Macrocrystal 50 MG CAP PO SCH ×2 (08:32→21:18)
[2022-06-16] MEDS ORDERED: Magnesium 2 GM/50 ML(in water) 2 GM in Premix Bag 1 BAG IVPB SCH (09:15)
[2022-06-16] MEDS ORDERED: Potassium Chloride 20 MEQ TAB PO SCH (09:15)
[2022-06-16] MEDS ORDERED: cefTRIAXone\\ROCEPHIN 1 GM in Sodium Chloride 0.9% 100 ML IVPB SCH (10:00)
[2022-06-16] MEDS: Senokot S 8.6-50 MG TAB PO SCH ×2 (10:13→21:19)
[2022-06-16] MEDS: Polyethylene Glycol 3350 17 GM Packet PO SCH (10:13)
[2022-06-16] MEDS: Potassium Chloride 20 MEQ in Premix Bag 1 BAG IVPB SCH ×2 (11:46→14:21)
[2022-06-16] MEDS: HumaLOG 300 UNITS/3 ML VIAL SC PRN (11:49)
[2022-06-16] MEDS: Famotidine/PF 20 mg/2ml Vial SLOW IVP SCH (21:20)
[2022-06-17] MEDS: traMADol HCl 50 MG TAB PO SCH ×4 (00:14→18:30)
[2022-06-17] MEDS: Acetaminophen 500 MG TAB PO SCH ×4 (03:15→20:21)
[2022-06-17] MEDS: Levothyroxine Sodium 25 MCG TAB PO SCH (05:39)
[2022-06-17 06:40] LABS: Anion Gap 11 mmol/L (10-20); BUN (Urea Nitrogen) 10 mg/dL (9.8-20.1); Calc. Creatinine Clearance 88 mL/min (70-130); Calcium 8.2 mg/dL (7.8-10.44); Carbon Dioxide 29 mmol/L (23-31); Chloride 98 mmol/L (98-107); Estimated GFR 100; Glucose 133 mg/dL (80-115); Magnesium 1.9 mg/dL (1.6-2.6); Potassium 3.7 mmol/L (3.5-5.1); Sodium 134 mmol/L (136-145)
[2022-06-17] MEDS: Nitrofurantoin Macrocrystal 50 MG CAP PO SCH ×2 (10:10→20:20)
[2022-06-17] MEDS: PARoxetine 20 MG TAB PO SCH (10:10)
[2022-06-17] MEDS: Senokot S 8.6-50 MG TAB PO SCH ×2 (10:11→20:20)
[2022-06-17] MEDS: Polyethylene Glycol 3350 17 GM Packet PO SCH (10:12)
[2022-06-17] MEDS: Lisinopril 20 MG TAB PO SCH (10:25)
[2022-06-17] MEDS: Ibuprofen 200 MG TAB PO SCH ×2 (14:28→20:21)
[2022-06-17] MEDS: Gabapentin 100 MG CAP PO SCH ×2 (15:01→20:22)
[2022-06-17] MEDS: Carvedilol 25 MG TAB PO SCH (18:30)
[2022-06-17] MEDS: HumaLOG 300 UNITS/3 ML VIAL SC PRN (18:31)
[2022-06-17] MEDS: Famotidine/PF 20 mg/2ml Vial SLOW IVP SCH (20:19)
[2022-06-17] MEDS ORDERED: Enoxaparin Sodium 40 MG/0.4 ML SYRINGE SC SCH (21:00)
[2022-06-18] MEDS: traMADol HCl 50 MG TAB PO SCH ×4 (00:17→17:13)
[2022-06-18] MEDS: Ibuprofen 200 MG TAB PO SCH ×2 (03:00→12:31)
[2022-06-18] MEDS: Acetaminophen 500 MG TAB PO SCH ×3 (03:00→15:23)
[2022-06-18] MEDS ORDERED: Levothyroxine Sodium 88 MCG TAB PO SCH (06:00)
[2022-06-18 06:01] VITALS: BMI 22.1
[2022-06-18] MEDS ORDERED: Enoxaparin Sodium 40 MG/0.4 ML SYRINGE SC SCH (09:00)
[2022-06-18] MEDS: Gabapentin 100 MG CAP PO SCH ×2 (09:32→15:23)
[2022-06-18] MEDS: Senokot S 8.6-50 MG TAB PO SCH (09:32)
[2022-06-18] MEDS: PARoxetine 20 MG TAB PO SCH (09:32)
[2022-06-18] MEDS: Lisinopril 20 MG TAB PO SCH (09:32)
[2022-06-18] MEDS: Polyethylene Glycol 3350 17 GM Packet PO SCH (09:33)
[2022-06-18] MEDS: Nitrofurantoin Macrocrystal 50 MG CAP PO SCH (09:33)
[2022-06-18] MEDS: Carvedilol 25 MG TAB PO SCH ×2 (09:33→17:14)
[2022-06-18] MEDS: HumaLOG 300 UNITS/3 ML VIAL SC PRN (12:33)
[2022-06-18 15:16] VITALS: BP 117/71; TEMP 98
== END 2022-06-18 18:25 | DRG 956 ==
LOC: ERS 11:33 → ERHOLD 13:47 → 2NO 17:28 → SURG A 06-15 18:00
PROVIDERS: ADMIT Surgery; ATTEND Surgery
PROC: 0QS606Z Reposition Right Upper Femur with Intramedullary Internal Fixation Device, Open Approach (ICD-10-PCS; principal; 2022-06-15)
DX: S72.141A Displaced intertrochanteric fracture of right femur, initial encounter for closed fracture (principal); T79.6XXA Traumatic ischemia of muscle, initial encounter; N17.9 Acute kidney failure, unspecified; I24.8 Other forms of acute ischemic heart disease; N39.0 Urinary tract infection, site not specified; Z20.822 Contact with and (suspected) exposure to COVID-19; Z60.2 Problems related to living alone; W18.30XA Fall on same level, unspecified, initial encounter; F41.9 Anxiety disorder, unspecified; F32.A Depression, unspecified; F17.210 Nicotine dependence, cigarettes, uncomplicated; E87.6 Hypokalemia; K21.9 Gastro-esophageal reflux disease without esophagitis; E78.00 Pure hypercholesterolemia, unspecified; N18.9 Chronic kidney disease, unspecified; B96.20 Unspecified Escherichia coli [E. coli] as the cause of diseases classified elsewhere; I49.3 Ventricular premature depolarization; E11.22 Type 2 diabetes mellitus with diabetic chronic kidney disease; I12.9 Hypertensive chronic kidney disease with stage 1 through stage 4 chronic kidney disease, or unspecified chronic kidney disease; E86.0 Dehydration; E03.9 Hypothyroidism, unspecified; Z79.899 Other long term (current) drug therapy; Z79.890 Hormone replacement therapy; Z79.84 Long term (current) use of oral hypoglycemic drugs; Z83.3 Family history of diabetes mellitus; Z82.49 Family history of ischemic heart disease and other diseases of the circulatory system
CPT/HCPCS: 36415; 36416; 70450; 72125; 72131; 72192; 76000; 80048; 80053; 81001; 82550; 82553; 83735; 84100; 84484; 85025; 85610; 85730; 86850; 86900; 86901; 87077; 87086; 87186; 93005; 96374; 96375; C1713; J0690; J1650; J1815; J2270; J2405; J2704; J3475; J3480; J3490; J7050; S0028; U0002

== ENCOUNTER 2022-07-16 11:52 | Inpatient (IN) | payer OTHER ==
[2022-07-16] MEDS ORDERED: Piperacillin/Tazobactam 4.5 GM VIAL ONE ×2 (13:01→16:36)
[2022-07-16 13:11] LABS: Bacteria/HPF 4+ HPF (None Seen); Bilirubin Negative (Negative); Blood, Urine 2+ (Negative); Clarity Turbid (Clear); Glucose, Urine (Dipstick) Normal (Negative); Ketone, Urine 10 mg/dL (Negative); Leukocyte 75 Leu/uL (Negative); Nitrite Negative (Negative); Protein, Urine (Dipstick) 30 mg/dL (Neg-Trace); RBC/HPF 0-3 HPF (0-3); Specific Gravity, Urine 1.023 (1.002-1.036); Squamous Epithelial None Seen HPF (0-3); pH, Urine 5.5 (5.0-9.0)
[2022-07-16 13:22] LABS: Mean Corpuscular HGB CONC 32.2 g/dL (32.0-36.0); Mean Corpuscular Hemoglobin 31.7 pg (27.0-31.0); Mean Corpuscular Volume 98.3 fL (78.0-98.0); Platelet Count 468 thou/uL (130-400); RBC Distribution Width 14.3 % (11.5-14.5)
[2022-07-16] MEDS ORDERED: VANCOMYCIN 1.25 GM/250 ML BAG 1.25 GM in Premix Bag 1 BAG IVPB SCH (13:30)
[2022-07-16 13:37] LABS: Band 4 % (5-11); Lymphocytes 3 % (21-51); MDiff Complete? YES; Monocytes 6 % (0-10); Neutrophil 87 % (42-75); Platelet Morphology Comment Appears Increased; Polychromasia SLIGHT = 2-3 cells (100X) (0-2/hpf)
[2022-07-16 13:46] LABS: ALT (SGPT) 15 U/L (8-55); AST (SGOT) 15 U/L (5-34); Albumin 3.6 g/dL (3.4-4.8); Alkaline Phosphatase 159 U/L (40-110); Anion Gap 19 mmol/L (10-20); BUN (Urea Nitrogen) 28 mg/dL (9.8-20.1); Bilirubin, Total 0.8 mg/dL (0.2-1.2); Calc. Creatinine Clearance 0 mL/min (70-130); Carbon Dioxide 22 mmol/L (23-31); Chloride 114 mmol/L (98-107); Estimated GFR 75; Globulin 4.2 g/dL (2.4-3.5); Glucose 168 mg/dL (80-115); Magnesium 2.2 mg/dL (1.6-2.6); Potassium 3.1 mmol/L (3.5-5.1); Protein, Total 7.8 g/dL (5.8-8.1); Sodium 152 mmol/L (136-145)
[2022-07-16 13:56] LABS: INR-International Normal Ratio 1.4; Prothrombin Time 17.7 sec (12.0-14.7)
[2022-07-16 13:57] LABS: PTT 39.4 sec (22.9-36.1)
[2022-07-16 14:06] LABS: D-Dimer Test 13.83 *mcg/mL (0.27-0.43)
[2022-07-16 14:23] LABS: CKMB 1.2 ng/mL (0-6.6)
[2022-07-16] MEDS ORDERED: Acetaminophen 650 MG Suppository ONE (14:35)
[2022-07-16] MEDS ORDERED: Aspirin 300 MG Suppository ONE (14:41)
[2022-07-16 14:43] LABS: SARS-CoV-2 NAA Rapid Test Not Detected (NotDetected)
[2022-07-16 14:49] LABS: Actual Bicarbonate (HCO3v) 28 mEq/L (22-28); Analyzer IN Cardio ER; Base Excess 5.4 mEq/L (-2.0 to +3.0); Calcium, Ionized (venous) 1.08 mmol/L (1.16-1.32); Chloride (VBG) 114 mmol/L (98-106); Sodium 152.7 mmol/L (133-146); pH (venous) 7.55 (7.32-7.43)
[2022-07-16] MEDS ORDERED: Iopamidol-370 76% 500 ML 1 ML ONE ×2 (15:19→15:24)
[2022-07-16] MEDS ORDERED: Potassium Chloride 40 MEQ in Sodium Chloride 0.9% 250 ML 250 ML IVPB SCH (15:30)
[2022-07-16 16:33] LABS: Lactic Acid 2.1 mmol/L (0.5-2.2)
[2022-07-16] MEDS ORDERED: Ondansetron PF 4 MG/2 ML Vial IVP PRN (17:24)
[2022-07-16] MEDS ORDERED: Bisacodyl 5 MG TAB PO PRN (17:24)
[2022-07-16] MEDS ORDERED: Senokot S 8.6-50 MG TAB PO PRN (17:24)
[2022-07-16] MEDS ORDERED: Acetaminophen 325 MG TAB PO PRN (17:24)
[2022-07-16] MEDS ORDERED: Bisacodyl 10 MG SUPP PR PRN (17:24)
[2022-07-16] MEDS ORDERED: Dextrose 5% in Water 1,000 ML IV PRN (17:30)
[2022-07-16] MEDS ORDERED: HumaLOG 300 UNITS/3 ML VIAL SC PRN (17:30)
[2022-07-16] MEDS ORDERED: Dextrose 50% Abboject 50 ML SYRINGE SLOW IVP PRN (17:30)
[2022-07-16 17:34] LABS: Troponin I 0.068 ng/mL (< 0.028)
[2022-07-16] MEDS ORDERED: metroNIDAZOLE 500 MG/100 ML BAG ONE (17:56)
[2022-07-16] MEDS ORDERED: Dextrose 5 %-0.45 % NaCl 1,000 ML IV SCH (18:15)
[2022-07-16] MEDS ORDERED: hydrALAZINE 20 MG/ML VIAL SLOW IVP PRN (18:18)
[2022-07-16 20:15] LABS: Troponin I 0.066 ng/mL (< 0.028)
[2022-07-16] MEDS ORDERED: Vancomycin HCl 1 GM in Sodium Chloride 0.9% 250 ML 300 ML IVPB SCH (21:00)
[2022-07-16] MEDS: metroNIDAZOLE 500 MG in Premix Bag 1 BAG IVPB SCH (22:50)
[2022-07-16] MEDS: Cefepime 2 GM in Sodium Chloride 0.9% 100 ML IVPB SCH (23:07)
[2022-07-17] MEDS ORDERED: Acetaminophen 650 MG Suppository PR PRN (02:55)
[2022-07-17] MEDS: Morphine 2 MG/ML VIAL SLOW IVP PRN ×2 (03:26→22:25)
[2022-07-17] MEDS: metroNIDAZOLE 500 MG in Premix Bag 1 BAG IVPB SCH ×3 (05:03→20:49)
[2022-07-17 05:18] LABS: Hemoglobin 9.6 g/dL (12.0-16.0); Mean Corpuscular HGB CONC 31.1 g/dL (32.0-36.0); Mean Corpuscular Hemoglobin 30.7 pg (27.0-31.0); Mean Corpuscular Volume 98.6 fL (78.0-98.0); Platelet Count 423 thou/uL (130-400); RBC Distribution Width 14.1 % (11.5-14.5); Red Blood Cell (RBC) Count 3.13 mill/uL (4.20-5.40); White Blood Cell (WBC) Count 19.3 thou/uL (4.8-10.8)
[2022-07-17 05:25] LABS: ALT (SGPT) 11 U/L (8-55); AST (SGOT) 14 U/L (5-34); Alkaline Phosphatase 119 U/L (40-110); Anion Gap 13 mmol/L (10-20); BUN (Urea Nitrogen) 16 mg/dL (9.8-20.1); Bilirubin, Direct 0.4 mg/dL (0.1-0.3); Bilirubin, Total 0.8 mg/dL (0.2-1.2); Calc. Creatinine Clearance 72 mL/min (70-130); Calcium 9.1 mg/dL (7.8-10.44); Carbon Dioxide 25 mmol/L (23-31); Cardiac Risk 4.4 (Less than 4.5); Chloride 115 mmol/L (98-107); Cholesterol 101 mg/dl (< 200 Desired); Estimated GFR 97; Glucose 170 mg/dL (80-115); HDL Cholesterol 23 mg/dL (>60 Neg Risk); LDL Cholesterol, Calculated 58 mg/dL; Magnesium 1.8 mg/dL (1.6-2.6); Protein, Total 6.3 g/dL (5.8-8.1); Sodium 151 mmol/L (136-145); Triglycerides 102 mg/dL (Less than 150)
[2022-07-17 05:29] LABS: Potassium 2.4 mmol/L (3.5-5.1)
[2022-07-17 05:44] LABS: Band 11 % (5-11); Hypochromia SLIGHT = 6-15 cells (100X) (0-5/hpf); Lymphocytes 1 % (21-51); MDiff Complete? YES; Macrocytosis SLIGHT = 6-15 cells (100X) (0-5/hpf); Monocytes 3 % (0-10); Neutrophil 85 % (42-75); Platelet Morphology Comment Appears Increased; Polychromasia SLIGHT = 2-3 cells (100X) (0-2/hpf)
[2022-07-17] MEDS ORDERED: Enoxaparin Sodium 40 MG/0.4 ML SYRINGE SC SCH (09:00)
[2022-07-17 09:42] LABS: Anion Gap 12 mmol/L (10-20); BUN (Urea Nitrogen) 13 mg/dL (9.8-20.1); Calc. Creatinine Clearance 80 mL/min (70-130); Calcium 8.7 mg/dL (7.8-10.44); Carbon Dioxide 26 mmol/L (23-31); Chloride 114 mmol/L (98-107); Estimated GFR 99; Glucose 173 mg/dL (80-115); Sodium 150 mmol/L (136-145)
[2022-07-17 09:46] LABS: Potassium 2.2 mmol/L (3.5-5.1)
[2022-07-17] MEDS: Cefepime 2 GM in Sodium Chloride 0.9% 100 ML IVPB SCH ×2 (10:35→20:49)
[2022-07-17] MEDS ORDERED: Potassium Chloride 20 MEQ in Premix Bag 1 BAG IVPB SCH ×2 (10:45→15:00)
[2022-07-17] MEDS: Potassium Chloride 40 MEQ in Dextrose 5% in Water 1,000 ML IV SCH ×2 (11:42→22:27)
[2022-07-17] MEDS: Vancomycin 1 GM in Premix Bag 1 BAG IVPB SCH (15:45)
[2022-07-17] MEDS: Divalproex Sodium 125 mg Sprinkle Capsule PO SCH (20:50)
[2022-07-18 05:12] LABS: #Eosinphils 0.1 thou/uL (0.0-0.7); #Lymphocytes 1.3 thou/uL (1.20-3.40); %Eosinophils 0.8 % (0.0-10.0); %Lymphocytes 9.9 % (21.0-51.0); %Monocytes 7.4 % (0.0-10.0); %Neutrophils 81.9 % (42.0-75.0); Hemoglobin 9.2 g/dL (12.0-16.0); Mean Corpuscular HGB CONC 33.1 g/dL (32.0-36.0); Mean Corpuscular Hemoglobin 32.3 pg (27.0-31.0); Mean Corpuscular Volume 97.7 fL (78.0-98.0); Mean Platelet Volume 7.2 fL (7.4-10.4); Platelet Count 377 thou/uL (130-400); Red Blood Cell (RBC) Count 2.84 mill/uL (4.20-5.40); White Blood Cell (WBC) Count 13.5 thou/uL (4.8-10.8)
[2022-07-18] MEDS: metroNIDAZOLE 500 MG in Premix Bag 1 BAG IVPB SCH ×3 (05:36→22:37)
[2022-07-18 05:55] LABS: Anion Gap 12 mmol/L (10-20); BUN (Urea Nitrogen) 11 mg/dL (9.8-20.1); Calc. Creatinine Clearance 81 mL/min (70-130); Calcium 8.3 mg/dL (7.8-10.44); Carbon Dioxide 25 mmol/L (23-31); Chloride 107 mmol/L (98-107); Estimated GFR 100; Glucose 158 mg/dL (80-115); Magnesium 1.6 mg/dL (1.6-2.6); Sodium 141 mmol/L (136-145)
[2022-07-18 06:00] LABS: Potassium 2.6 mmol/L (3.5-5.1)
[2022-07-18] MEDS ORDERED: Electrolyte Replacement Protocol 1 EACH FS SCH (06:30)
[2022-07-18] MEDS: Potassium Chloride 40 MEQ in Sodium Chloride 0.9% 250 ML 250 ML IVPB SCH ×2 (07:01→11:04)
[2022-07-18] MEDS ORDERED: Magnesium 2 GM/50 ML(in water) 2 GM in Premix Bag 1 BAG IVPB SCH (08:00)
[2022-07-18] MEDS: Potassium Chloride 40 MEQ in Dextrose 5% in Water 1,000 ML IV SCH ×2 (08:35→14:16)
[2022-07-18] MEDS: Cefepime 2 GM in Sodium Chloride 0.9% 100 ML IVPB SCH ×2 (10:06→22:36)
[2022-07-18 14:10] LABS: Vancomycin, Trough 5.1 ug/mL
[2022-07-18] MEDS: Vancomycin 1 GM in Premix Bag 1 BAG IVPB SCH ×2 (15:25→16:05)
[2022-07-18] MEDS: Divalproex Sodium 125 mg Sprinkle Capsule PO SCH (22:38)
[2022-07-19 04:34] LABS: #Eosinphils 0.3 thou/uL (0.0-0.7); #Lymphocytes 1.2 thou/uL (1.20-3.40); #Monocytes 0.8 thou/uL (0.11-0.59); #Neutrophils 6.5 thou/uL (1.40-6.50); %Eosinophils 3.7 % (0.0-10.0); %Lymphocytes 13.9 % (21.0-51.0); %Neutrophils 73.4 % (42.0-75.0); Hemoglobin 10.2 g/dL (12.0-16.0); Mean Corpuscular HGB CONC 31.7 g/dL (32.0-36.0); Mean Corpuscular Hemoglobin 30.8 pg (27.0-31.0); Mean Corpuscular Volume 97.2 fL (78.0-98.0); Mean Platelet Volume 7.7 fL (7.4-10.4); Platelet Count 372 thou/uL (130-400); RBC Distribution Width 14.3 % (11.5-14.5); White Blood Cell (WBC) Count 8.8 thou/uL (4.8-10.8)
[2022-07-19 04:51] LABS: Anion Gap 12 mmol/L (10-20); BUN (Urea Nitrogen) 9 mg/dL (9.8-20.1); Calc. Creatinine Clearance 84 mL/min (70-130); Calcium 8.2 mg/dL (7.8-10.44); Carbon Dioxide 22 mmol/L (23-31); Chloride 106 mmol/L (98-107); Estimated GFR 100; Glucose 149 mg/dL (80-115); Magnesium 1.8 mg/dL (1.6-2.6); Potassium 3.5 mmol/L (3.5-5.1); Sodium 136 mmol/L (136-145)
[2022-07-19] MEDS: metroNIDAZOLE 500 MG in Premix Bag 1 BAG IVPB SCH (05:38)
[2022-07-19] MEDS: Vancomycin 1 GM in Premix Bag 1 BAG IVPB SCH ×2 (05:38→15:13)
[2022-07-19] MEDS: Potassium Chloride 40 MEQ in Dextrose 5% in Water 1,000 ML IV SCH ×2 (05:38→16:53)
[2022-07-19] MEDS ORDERED: Potassium Chloride 20 MEQ TAB PO SCH (08:00)
[2022-07-19] MEDS ORDERED: Magnesium 2 GM/50 ML(in water) 2 GM in Premix Bag 1 BAG IVPB SCH (08:00)
[2022-07-19] MEDS: Cefepime 2 GM in Sodium Chloride 0.9% 100 ML IVPB SCH ×2 (12:30→21:24)
[2022-07-19] MEDS: HumaLOG 300 UNITS/3 ML VIAL SC PRN (17:42)
[2022-07-19] MEDS: Divalproex Sodium 125 mg Sprinkle Capsule PO SCH (21:25)
[2022-07-20 02:03] LABS: #Eosinphils 0.3 thou/uL (0.0-0.7); #Lymphocytes 1.5 thou/uL (1.20-3.40); #Monocytes 0.9 thou/uL (0.11-0.59); #Neutrophils 6.2 thou/uL (1.40-6.50); %Basophils 0.2 % (0.0-1.0); %Lymphocytes 16.8 % (21.0-51.0); %Monocytes 10.4 % (0.0-10.0); %Neutrophils 69.6 % (42.0-75.0); Hemoglobin 10.9 g/dL (12.0-16.0); Mean Corpuscular HGB CONC 32.6 g/dL (32.0-36.0); Mean Corpuscular Hemoglobin 31.4 pg (27.0-31.0); Mean Corpuscular Volume 96.4 fL (78.0-98.0); Mean Platelet Volume 6.9 fL (7.4-10.4); Platelet Count 427 thou/uL (130-400); RBC Distribution Width 14.4 % (11.5-14.5); Red Blood Cell (RBC) Count 3.48 mill/uL (4.20-5.40); White Blood Cell (WBC) Count 8.9 thou/uL (4.8-10.8)
[2022-07-20 02:20] LABS: Vancomycin, Trough 13.9 ug/mL
[2022-07-20 02:40] LABS: Anion Gap 12 mmol/L (10-20); BUN (Urea Nitrogen) 10 mg/dL (9.8-20.1); Calc. Creatinine Clearance 76 mL/min (70-130); Calcium 8.6 mg/dL (7.8-10.44); Carbon Dioxide 24 mmol/L (23-31); Chloride 105 mmol/L (98-107); Estimated GFR 99; Glucose 186 mg/dL (80-115); Potassium 3.9 mmol/L (3.5-5.1); Sodium 137 mmol/L (136-145)
[2022-07-20] MEDS: Vancomycin 1 GM in Premix Bag 1 BAG IVPB SCH ×2 (04:18→15:10)
[2022-07-20] MEDS: HumaLOG 300 UNITS/3 ML VIAL SC PRN ×3 (05:58→18:12)
[2022-07-20] MEDS ORDERED: Magnesium 2 GM/50 ML(in water) 2 GM in Premix Bag 1 BAG IVPB SCH (08:00)
[2022-07-20] MEDS: Potassium Chloride 40 MEQ in Dextrose 5% in Water 1,000 ML IV SCH (10:22)
[2022-07-20] MEDS: Cefepime 2 GM in Sodium Chloride 0.9% 100 ML IVPB SCH ×2 (11:25→21:35)
[2022-07-20] MEDS: Acetaminophen 325 MG TAB PO PRN (15:17)
[2022-07-20] MEDS: Clindamycin/D5W 600 MG in Premix Bag 1 BAG IVPB SCH (17:00)
[2022-07-20] MEDS: Divalproex Sodium 125 mg Sprinkle Capsule PO SCH (21:34)
[2022-07-20] MEDS: Chlorhexidine Gluconate 15 ML UDCUP SSP SCH (21:58)
[2022-07-21] MEDS: Clindamycin/D5W 600 MG in Premix Bag 1 BAG IVPB SCH ×5 (02:03→23:35)
[2022-07-21] MEDS: Vancomycin 1 GM in Premix Bag 1 BAG IVPB SCH ×2 (04:49→18:27)
[2022-07-21] MEDS: Acetaminophen 325 MG TAB PO PRN ×2 (04:56→21:25)
[2022-07-21 05:01] LABS: Anion Gap 15 mmol/L (10-20); BUN (Urea Nitrogen) 12 mg/dL (9.8-20.1); Calc. Creatinine Clearance 76 mL/min (70-130); Calcium 8.4 mg/dL (7.8-10.44); Carbon Dioxide 18 mmol/L (23-31); Chloride 104 mmol/L (98-107); Estimated GFR 99; Glucose 148 mg/dL (80-115); Potassium 4.6 mmol/L (3.5-5.1); Sodium 132 mmol/L (136-145)
[2022-07-21] MEDS ORDERED: Magnesium 2 GM/50 ML(in water) 2 GM in Premix Bag 1 BAG IVPB SCH (06:45)
[2022-07-21 07:15] LABS: #Eosinphils 0.4 thou/uL (0.0-0.7); #Lymphocytes 1.8 thou/uL (1.20-3.40); #Monocytes 0.9 thou/uL (0.11-0.59); #Neutrophils 4.8 thou/uL (1.40-6.50); %Basophils 0.2 % (0.0-1.0); %Eosinophils 4.7 % (0.0-10.0); %Lymphocytes 22.7 % (21.0-51.0); %Monocytes 10.8 % (0.0-10.0); %Neutrophils 61.6 % (42.0-75.0); Hemoglobin 11.2 g/dL (12.0-16.0); Mean Corpuscular HGB CONC 32.5 g/dL (32.0-36.0); Mean Corpuscular Hemoglobin 32.1 pg (27.0-31.0); Mean Corpuscular Volume 98.8 fL (78.0-98.0); Mean Platelet Volume 7.3 fL (7.4-10.4); Platelet Count 407 thou/uL (130-400); RBC Distribution Width 14.8 % (11.5-14.5); Red Blood Cell (RBC) Count 3.49 mill/uL (4.20-5.40); White Blood Cell (WBC) Count 7.9 thou/uL (4.8-10.8)
[2022-07-21] MEDS: Potassium Chloride 40 MEQ in Dextrose 5% in Water 1,000 ML IV SCH (10:00)
[2022-07-21] MEDS: Cefepime 2 GM in Sodium Chloride 0.9% 100 ML IVPB SCH ×2 (10:00→22:24)
[2022-07-21] MEDS: Chlorhexidine Gluconate 15 ML UDCUP SSP SCH ×2 (11:52→21:30)
[2022-07-21 14:24] LABS: Vancomycin, Trough 20.3 ug/mL
[2022-07-21] MEDS: Divalproex Sodium 125 mg Sprinkle Capsule PO SCH (21:25)
[2022-07-22 04:48] LABS: #Eosinphils 0.3 thou/uL (0.0-0.7); #Lymphocytes 1.5 thou/uL (1.20-3.40); #Monocytes 0.9 thou/uL (0.11-0.59); #Neutrophils 4.2 thou/uL (1.40-6.50); %Basophils 0.6 % (0.0-1.0); %Eosinophils 4.9 % (0.0-10.0); %Lymphocytes 21.2 % (21.0-51.0); %Monocytes 13.1 % (0.0-10.0); %Neutrophils 60.3 % (42.0-75.0); Hemoglobin 10.9 g/dL (12.0-16.0); Mean Corpuscular HGB CONC 31.5 g/dL (32.0-36.0); Mean Corpuscular Hemoglobin 30.7 pg (27.0-31.0); Mean Corpuscular Volume 97.6 fL (78.0-98.0); Mean Platelet Volume 7.3 fL (7.4-10.4); Platelet Count 445 thou/uL (130-400); RBC Distribution Width 14.9 % (11.5-14.5); Red Blood Cell (RBC) Count 3.56 mill/uL (4.20-5.40); White Blood Cell (WBC) Count 6.9 thou/uL (4.8-10.8)
[2022-07-22 05:16] LABS: Anion Gap 12 mmol/L (10-20); BUN (Urea Nitrogen) 11 mg/dL (9.8-20.1); Calc. Creatinine Clearance 77 mL/min (70-130); Calcium 8.5 mg/dL (7.8-10.44); Carbon Dioxide 22 mmol/L (23-31); Chloride 101 mmol/L (98-107); Estimated GFR 100; Glucose 119 mg/dL (80-115); Potassium 4.3 mmol/L (3.5-5.1); Sodium 131 mmol/L (136-145)
[2022-07-22] MEDS: Potassium Chloride 40 MEQ in Dextrose 5% in Water 1,000 ML IV SCH ×2 (05:40→23:02)
[2022-07-22] MEDS: Clindamycin/D5W 600 MG in Premix Bag 1 BAG IVPB SCH ×4 (05:44→23:58)
[2022-07-22] MEDS ORDERED: Magnesium 2 GM/50 ML(in water) 2 GM in Premix Bag 1 BAG IVPB SCH (08:00)
[2022-07-22] MEDS: Chlorhexidine Gluconate 15 ML UDCUP SSP SCH ×2 (08:48→20:25)
[2022-07-22] MEDS: Cefepime 2 GM in Sodium Chloride 0.9% 100 ML IVPB SCH ×2 (11:33→20:34)
[2022-07-22] MEDS: Acetaminophen 325 MG TAB PO PRN (20:26)
[2022-07-22] MEDS: Divalproex Sodium 125 mg Sprinkle Capsule PO SCH (20:26)
[2022-07-23 04:43] LABS: #Eosinphils 0.2 thou/uL (0.0-0.7); #Lymphocytes 1.2 thou/uL (1.20-3.40); #Monocytes 0.8 thou/uL (0.11-0.59); #Neutrophils 4.1 thou/uL (1.40-6.50); %Basophils 0.1 % (0.0-1.0); %Eosinophils 3.6 % (0.0-10.0); %Lymphocytes 19.2 % (21.0-51.0); %Monocytes 11.9 % (0.0-10.0); %Neutrophils 65.2 % (42.0-75.0); Hemoglobin 10.5 g/dL (12.0-16.0); Mean Corpuscular HGB CONC 32.5 g/dL (32.0-36.0); Mean Corpuscular Hemoglobin 31.4 pg (27.0-31.0); Mean Corpuscular Volume 96.6 fL (78.0-98.0); Mean Platelet Volume 7.1 fL (7.4-10.4); Platelet Count 492 thou/uL (130-400); RBC Distribution Width 14.5 % (11.5-14.5); Red Blood Cell (RBC) Count 3.34 mill/uL (4.20-5.40); White Blood Cell (WBC) Count 6.3 thou/uL (4.8-10.8)
[2022-07-23 05:07] LABS: Anion Gap 12 mmol/L (10-20); BUN (Urea Nitrogen) 13 mg/dL (9.8-20.1); Calc. Creatinine Clearance 72 mL/min (70-130); Calcium 8.7 mg/dL (7.8-10.44); Carbon Dioxide 24 mmol/L (23-31); Chloride 101 mmol/L (98-107); Estimated GFR 98; Glucose 124 mg/dL (80-115); Magnesium 2.1 mg/dL (1.6-2.6); Potassium 4.3 mmol/L (3.5-5.1); Sodium 133 mmol/L (136-145)
[2022-07-23] MEDS: Levothyroxine Sodium 88 MCG TAB PO SCH (05:40)
[2022-07-23] MEDS: Clindamycin/D5W 600 MG in Premix Bag 1 BAG IVPB SCH ×3 (05:40→21:39)
[2022-07-23] MEDS: Acetaminophen 325 MG TAB PO PRN (05:42)
[2022-07-23] MEDS: Chlorhexidine Gluconate 15 ML UDCUP SSP SCH ×2 (08:12→21:29)
[2022-07-23] MEDS: Cefepime 2 GM in Sodium Chloride 0.9% 100 ML IVPB SCH (10:32)
[2022-07-23] MEDS: Divalproex Sodium 125 mg Sprinkle Capsule PO SCH (21:29)
[2022-07-23] MEDS: Morphine 2 MG/ML VIAL SLOW IVP PRN (21:30)
[2022-07-23] MEDS: Cefepime 1 GM in Sodium Chloride 0.9% 100 ML IVPB SCH (21:35)
[2022-07-23 22:28] VITALS: BMI 22.1
[2022-07-23] MEDS: Potassium Chloride 40 MEQ in Dextrose 5% in Water 1,000 ML IV SCH (22:35)
[2022-07-24] MEDS: Morphine 2 MG/ML VIAL SLOW IVP PRN (05:35)
[2022-07-24] MEDS: Levothyroxine Sodium 88 MCG TAB PO SCH (05:36)
[2022-07-24] MEDS: Clindamycin/D5W 600 MG in Premix Bag 1 BAG IVPB SCH ×3 (05:36→20:15)
[2022-07-24] MEDS: Chlorhexidine Gluconate 15 ML UDCUP SSP SCH ×2 (09:45→20:39)
[2022-07-24] MEDS: Cefepime 1 GM in Sodium Chloride 0.9% 100 ML IVPB SCH ×2 (10:31→22:00)
[2022-07-24] MEDS: Potassium Chloride 40 MEQ in Dextrose 5% in Water 1,000 ML IV SCH (10:32)
[2022-07-24] MEDS: Gabapentin 100 MG CAP PO SCH ×2 (15:56→20:24)
[2022-07-24] MEDS: Metoprolol Tartrate 50 MG TAB PO SCH (20:23)
[2022-07-24] MEDS: Divalproex Sodium 125 mg Sprinkle Capsule PO SCH (20:24)
[2022-07-24] MEDS ORDERED: Benztropine 1 MG TAB PO SCH (21:00)
[2022-07-25] MEDS: Clindamycin/D5W 600 MG in Premix Bag 1 BAG IVPB SCH ×2 (04:10→13:05)
[2022-07-25] MEDS: Potassium Chloride 40 MEQ in Dextrose 5% in Water 1,000 ML IV SCH (04:10)
[2022-07-25] MEDS: Levothyroxine Sodium 88 MCG TAB PO SCH (05:40)
[2022-07-25] MEDS ORDERED: Lisinopril 20 MG TAB PO SCH (09:00)
[2022-07-25] MEDS ORDERED: cloNIDine 0.1 MG TAB PO SCH (09:00)
[2022-07-25] MEDS ORDERED: Amlodipine 5 MG TAB PO SCH (09:00)
[2022-07-25] MEDS: Metoprolol Tartrate 50 MG TAB PO SCH (09:05)
[2022-07-25] MEDS: Cefepime 1 GM in Sodium Chloride 0.9% 100 ML IVPB SCH (09:05)
[2022-07-25] MEDS: Gabapentin 100 MG CAP PO SCH ×2 (09:06→14:53)
[2022-07-25] MEDS: Chlorhexidine Gluconate 15 ML UDCUP SSP SCH (09:07)
[2022-07-25 16:02] VITALS: BP 108/59; TEMP 99
== END 2022-07-25 19:30 | DRG 871 ==
LOC: ERS 11:52 → SUATTDRO 11:52 → 2NO 16:38 → OBSVTOIN 07-17 08:51
PROVIDERS: ADMIT Hospitalist; ATTEND Hospitalist
DX: A41.01 Sepsis due to Methicillin susceptible Staphylococcus aureus (principal); Z20.822 Contact with and (suspected) exposure to COVID-19; G93.41 Metabolic encephalopathy; E87.0 Hyperosmolality and hypernatremia; L03.211 Cellulitis of face; N39.0 Urinary tract infection, site not specified; F32.A Depression, unspecified; F20.9 Schizophrenia, unspecified; K04.7 Periapical abscess without sinus; K11.21 Acute sialoadenitis; B96.20 Unspecified Escherichia coli [E. coli] as the cause of diseases classified elsewhere; S82.841A Displaced bimalleolar fracture of right lower leg, initial encounter for closed fracture; E11.9 Type 2 diabetes mellitus without complications; F41.9 Anxiety disorder, unspecified; E87.6 Hypokalemia; R77.8 Other specified abnormalities of plasma proteins; I11.0 Hypertensive heart disease with heart failure; E03.9 Hypothyroidism, unspecified; G40.909 Epilepsy, unspecified, not intractable, without status epilepticus; K21.9 Gastro-esophageal reflux disease without esophagitis; E78.00 Pure hypercholesterolemia, unspecified; R29.6 Repeated falls; I50.9 Heart failure, unspecified; E86.0 Dehydration; W18.30XA Fall on same level, unspecified, initial encounter; Z79.899 Other long term (current) drug therapy; Z79.84 Long term (current) use of oral hypoglycemic drugs; Z79.890 Hormone replacement therapy; Z87.891 Personal history of nicotine dependence; Z98.890 Other specified postprocedural states; Z91.81 History of falling
CPT/HCPCS: 36415; 36416; 51701; 70450; 70487; 71045; 71275; 80048; 80053; 80061; 80076; 80202; 81003; 81015; 82550; 82553; 82805; 83036; 83605; 83735; 84443; 84484; 85025; 85379; 85610; 85730; 87040; 87077; 87081; 87086; 87149; 87186; 87811; 93005; 96361; 96365; 96366; 96367; 96375; 96376; G0378; J0360; J0692; J2270; J2543; J3370; J3475; J3480; J3490; J7042; J7050; J7070; Q9967